=== PATIENT | female | born 1960 | race Caucasian/White ===

== ENCOUNTER → 2017-09-16 09:43 | Outpatient (CLI) | payer MEDICAID, SELFPAY | PROVIDERS: Family Provider Family Medicine; PCP Family Medicine; Visit Provider Ophthalmology | DX: H04.123 Dry eye syndrome of bilateral lacrimal glands (principal) | CPT/HCPCS: 36415 ==

== ENCOUNTER → 2018-02-14 09:25 | Outpatient (CLI) | payer MEDICAID, SELFPAY | PROVIDERS: Family Provider Family Medicine; PCP Family Medicine; Referring Provider Ophthalmology; Visit Provider Ophthalmology | DX: H04.123 Dry eye syndrome of bilateral lacrimal glands (principal) ==

== ENCOUNTER → 2018-07-15 08:23 | Outpatient (CLI) | payer MEDICAID, SELFPAY | PROVIDERS: Family Provider Family Medicine; PCP Family Medicine; Visit Provider Ophthalmology | DX: H04.123 Dry eye syndrome of bilateral lacrimal glands (principal) | CPT/HCPCS: 36415 ==

== ENCOUNTER → 2018-11-17 10:28 | Outpatient (CLI) | payer MEDICAID, SELFPAY | PROVIDERS: Family Provider Family Medicine; PCP Family Medicine; Referring Provider Ophthalmology; Visit Provider Ophthalmology | DX: H04.123 Dry eye syndrome of bilateral lacrimal glands (principal) | CPT/HCPCS: 36415 ==

== ENCOUNTER → 2019-04-14 11:16 | Outpatient (CLI) | payer MEDICAID, SELFPAY | PROVIDERS: Family Provider Family Medicine; PCP Family Medicine; Referring Provider Ophthalmology; Visit Provider Ophthalmology | DX: H04.123 Dry eye syndrome of bilateral lacrimal glands (principal) | CPT/HCPCS: 36415 ==

== ENCOUNTER → 2019-05-15 | Outpatient (CLI) | payer MEDICAID, SELFPAY ==
[2019-05-18 11:10] LABS: HPV Reflexed? NOT INDICATED
== END | disposition home or self-care (01) ==
PROVIDERS: PCP Family Medicine; Referring Provider Nurse Practitioner Adult Health; Visit Provider Nurse Practitioner Adult Health
DX: Z01.419 Encounter for gynecological examination (general) (routine) without abnormal findings (principal)
CPT/HCPCS: 88175; G0145

== ENCOUNTER → 2019-05-19 11:52 | Outpatient (CLI) | payer MEDICAID, SELFPAY ==
--- NOTE | 2019-05-19 11:55 | BI_ITS ---
MAMMOGRAPHY - BILATERAL SCREENING REASON FOR EXAM: Female, 59 years old. Routine annual screening examination. PERTINENT HISTORY: Non-contributory. TECHNIQUE: Digital bilateral breast jackie (3D mammographic acquisition) in the CC and MLO projections. 2-D mediolateral oblique (MLO) and craniocaudad (CC) views of both breasts were obtained. CAD: Full Field Digital Mammography with Computer Added Detection was performed. COMPARISON: Comparison is made with prior study dated May 12, 2017 and May 11, 2016. FINDINGS: Breast Composition: There are scattered areas of fibroglandular density. There are no dominant masses or suspicious calcifications. No other significant abnormalities are identified. There has been no significant change since the prior study. BI/SCREEN MAMM (CAD) W/JACKIE BILAT IMPRESSION: Stable bilateral screening mammogram. Yearly follow-up mammogram recommended. (A) ASSESSMENT CATEGORY: BIRADS Category 1: Negative. A letter regarding these results will be sent to the patient by the facility within 30 days. Approximately 10% of breast cancers are not detected by mammography. A normal mammogram should not delay biopsy of a clinically suspicious abnormality. [id number] Electronically Signed: Anshu Saldivar, at 13:11 EST , Service support ,
== END ==
PROVIDERS: PCP Family Medicine; Referring Provider Nurse Practitioner Adult Health; Visit Provider Nurse Practitioner Adult Health
DX: Z12.31 Encounter for screening mammogram for malignant neoplasm of breast (principal)
CPT/HCPCS: 77063; 77067

== ENCOUNTER → 2019-08-28 09:40 | Outpatient (CLI) | payer MEDICAID, SELFPAY | PROVIDERS: PCP Family Medicine; Referring Provider Ophthalmology; Visit Provider Ophthalmology | DX: M35.00 Sjogren syndrome, unspecified (principal) | CPT/HCPCS: 36415 ==

== ENCOUNTER → 2019-11-28 10:50 | Outpatient (CLI) | payer MEDICAID, SELFPAY ==
[2019-11-28 12:50] LABS: Anion Gap 5 (5-15); BUN 21 mg/dL (7-18); BUN/Creat Ratio 22.6 RATIO (10-20); Calcium,Total 9.7 mg/dL (8.5-10.1); Chloride 104 mmol/L (98-107); Creatinine, Serum 0.93 mg/dL (0.55-1.02); EST Glomerular Filtration Rate 66 mL/min (>60); Est Glom Filt Rate - Afr Amer 79 mL/min (>60); Glucose 98 mg/dL (74-106); Potassium 3.3 mmol/L (3.5-5.1); Sodium Level 140 mmol/L (136-145)
== END ==
PROVIDERS: PCP Family Medicine; Referring Provider Nurse Practitioner Adult Health; Visit Provider Nurse Practitioner Adult Health
DX: I10 Essential (primary) hypertension (principal)
CPT/HCPCS: 36415; 80048

== ENCOUNTER → 2020-01-22 08:28 | Outpatient (CLI) | payer MEDICAID, SELFPAY ==
[2020-01-22 09:55] LABS: Cholesterol 171 mg/dL (200); High Density Lipoprotein 55 mg/dL; Triglycerides 163 mg/dL; Very Low Density Lipoprotein 33 mg/dL (5-40)
== END ==
PROVIDERS: PCP Family Medicine; Referring Provider Ophthalmology; Visit Provider Ophthalmology
DX: Z13.220 Encounter for screening for lipoid disorders (principal)
CPT/HCPCS: 36415; 80061

== ENCOUNTER → 2020-06-05 11:41 | Outpatient (CLI) | payer MEDICAID, SELFPAY | PROVIDERS: PCP Family Medicine; Referring Provider Ophthalmology; Visit Provider Ophthalmology | DX: M35.00 Sjogren syndrome, unspecified (principal) | CPT/HCPCS: 36415 ==

== ENCOUNTER 2020-07-16 14:00 | Outpatient (RCR) | payer MEDICAID, SELFPAY | END 2020-07-17 23:59 | LOC: NS 14:00 | PROVIDERS: PCP Family Medicine; Visit Provider Family Medicine | DX: Z71.3 Dietary counseling and surveillance (principal); E66.9 Obesity, unspecified; Z68.31 Body mass index [BMI] 31.0-31.9, adult | CPT/HCPCS: 97802; 97803 ==

== ENCOUNTER 2020-07-30 10:22 | Outpatient (RCR) | payer MEDICAID, SELFPAY | END 2020-08-16 23:59 | LOC: NS 10:22 | PROVIDERS: PCP Family Medicine; Visit Provider Family Medicine | DX: Z71.3 Dietary counseling and surveillance (principal); E66.9 Obesity, unspecified; Z68.31 Body mass index [BMI] 31.0-31.9, adult | CPT/HCPCS: 97803 ==

== ENCOUNTER → 2020-09-03 10:13 | Outpatient (CLI) | payer MEDICAID, SELFPAY ==
[2020-09-03 12:49] LABS: Anion Gap 4 (5-15); BUN 13 mg/dL (7-18); BUN/Creat Ratio 16.1 RATIO (10-20); Calcium,Total 9.4 mg/dL (8.5-10.1); Chloride 105 mmol/L (98-107); Creatinine, Serum 0.81 mg/dL (0.55-1.02); EST Glomerular Filtration Rate 77 mL/min (>60); Est Glom Filt Rate - Afr Amer 93 mL/min (>60); Glucose 96 mg/dL (74-106); Potassium 3.8 mmol/L (3.5-5.1); Sodium Level 140 mmol/L (136-145)
== END ==
PROVIDERS: PCP Family Medicine; Referring Provider Family Medicine; Visit Provider Family Medicine
DX: I10 Essential (primary) hypertension (principal)
CPT/HCPCS: 36415; 80048

== ENCOUNTER 2020-09-10 10:00 | Outpatient (RCR) | payer MEDICAID, SELFPAY | END 2020-09-16 23:59 | LOC: NS 10:00 | PROVIDERS: PCP Family Medicine; Visit Provider Family Medicine | DX: Z71.3 Dietary counseling and surveillance (principal); E66.9 Obesity, unspecified; Z68.31 Body mass index [BMI] 31.0-31.9, adult | CPT/HCPCS: 97803 ==

== ENCOUNTER 2020-10-08 11:30 | Outpatient (RCR) | payer MEDICAID, SELFPAY | END 2020-10-16 23:59 | LOC: NS 11:30 | PROVIDERS: PCP Family Medicine; Visit Provider Family Medicine | DX: Z71.3 Dietary counseling and surveillance (principal); E66.9 Obesity, unspecified; Z68.31 Body mass index [BMI] 31.0-31.9, adult | CPT/HCPCS: 97803 ==

== ENCOUNTER → 2020-10-22 09:58 | Outpatient (CLI) | payer MEDICAID, SELFPAY | PROVIDERS: PCP Family Medicine; Referring Provider Ophthalmology; Visit Provider Ophthalmology | DX: M35.00 Sjogren syndrome, unspecified (principal); H04.123 Dry eye syndrome of bilateral lacrimal glands | CPT/HCPCS: 36415 ==

== ENCOUNTER 2020-11-05 11:00 | Outpatient (RCR) | payer MEDICAID, SELFPAY | END 2020-11-16 23:59 | LOC: NS 11:00 | PROVIDERS: PCP Family Medicine; Visit Provider Family Medicine | DX: E66.9 Obesity, unspecified (principal) | CPT/HCPCS: 97803 ==

== ENCOUNTER → 2020-11-14 11:07 | Outpatient (CLI) | payer MEDICAID, SELFPAY ==
[2020-11-14 12:15] LABS: Absolute Lymphocyte Count 1.94 X10^3/uL (0.83-4.51); Absolute Neutrophil Count 2.1 X10^3/uL (2.0-7.7); Basophil# 0.04 X10^3/uL; Basophil% 0.8 % (0-1); Eosinophil# 0.43 X10^3/uL; Eosinophils% 8.8 % (0-5); Hemoglobin 15.3 g/dL (12.0-15.0); Lymphocyte # 1.94 X10^3/ul (0.83-4.51); Lymphocyte % 39.8 % (19-41); Mean Corpuscular Hgb 32.7 pg (27.0-32.0); Mean Corpuscular Volume 96.2 fL (81-99); Monocyte# 0.39 X10^3/uL; NRBC Flagged by Analyzer 0 % (0-5); Neutrophil # 2.05 X10^3/uL (2.7-7.7); Neutrophil % 42.2 % (47-70); Platelet Count 186 K/mm3 (150-450); RBC Distribution Width CV 12.6 % (11.6-14.6); RBC Distribution Width SD 43.7 fl (35.1-43.9); Red Blood Count 4.68 M/mm3 (4.2-5.4); White Blood Count 4.9 K/mm3 (4.4-11.0)
[2020-11-14 12:44] LABS: ALB/GLOB Ratio 0.9 RATIO (0.9-2.4); AST(SGOT) 46 U/L (15-37); Alanine Aminotransfer ALT/SGPT 76 U/L (13-56); Albumin, Serum 3.7 g/dL (3.2-5.0); Alkaline Phosphatase 78 U/L (45-117); Anion Gap 6 (5-15); BUN 17 mg/dL (7-18); BUN/Creat Ratio 23.9 RATIO (10-20); Calcium,Total 9.1 mg/dL (8.5-10.1); Chloride 106 mmol/L (98-107); Creatinine, Serum 0.71 mg/dL (0.55-1.02); EST Glomerular Filtration Rate 89 mL/min (>60); Est Glom Filt Rate - Afr Amer 108 mL/min (>60); Globulin 3.9 g/dL (2.2-4.2); Glucose 95 mg/dL (74-106); Potassium 4.1 mmol/L (3.5-5.1); Protein, Total 7.6 g/dL (6.4-8.2); Sodium Level 139 mmol/L (136-145)
== END ==
PROVIDERS: PCP Family Medicine; Referring Provider Internal Medicine; Visit Provider Internal Medicine
DX: M25.50 Pain in unspecified joint (principal)
CPT/HCPCS: 36415; 80053; 85025; 94640

== ENCOUNTER 2020-12-09 09:00 | Outpatient (RCR) | payer MEDICAID, SELFPAY | END 2020-12-09 23:59 | disposition home or self-care (01) | LOC: NS 09:00 | PROVIDERS: PCP Family Medicine; Visit Provider Family Medicine | DX: Z71.3 Dietary counseling and surveillance (principal); E66.9 Obesity, unspecified; Z68.31 Body mass index [BMI] 31.0-31.9, adult | CPT/HCPCS: 97803 ==

== ENCOUNTER → 2021-01-15 15:17 | Outpatient (CLI) | payer MEDICAID, SELFPAY ==
[2021-01-15 16:52] LABS: AST(SGOT) 60 U/L (15-37); Alanine Aminotransfer ALT/SGPT 87 U/L (13-56); Albumin, Serum 3.7 g/dL (3.2-5.0); Alkaline Phosphatase 83 U/L (45-117); Anion Gap 6 (5-15); BUN 17 mg/dL (7-18); BUN/Creat Ratio 18.1 RATIO (10-20); Calcium,Total 8.7 mg/dL (8.5-10.1); Chloride 104 mmol/L (98-107); Creatinine, Serum 0.94 mg/dL (0.55-1.02); EST Glomerular Filtration Rate 64 mL/min (>60); Est Glom Filt Rate - Afr Amer 78 mL/min (>60); Globulin 3.7 g/dL (2.2-4.2); Glucose 126 mg/dL (74-106); Potassium 4.2 mmol/L (3.5-5.1); Protein, Total 7.4 g/dL (6.4-8.2); Sodium Level 140 mmol/L (136-145)
[2021-01-15 16:58] LABS: Vitamin D,25 Hydroxy 37.6 ng/mL
[2021-01-15 17:06] LABS: Absolute Lymphocyte Count 2.26 X10^3/uL (0.83-4.51); Absolute Neutrophil Count 2.2 X10^3/uL (2.0-7.7); Basophil# 0.03 X10^3/uL; Basophil% 0.6 % (0-1); Eosinophil# 0.29 X10^3/uL; Eosinophils% 5.7 % (0-5); Hematocrit 44.1 % (37-47); Lymphocyte # 2.26 X10^3/ul (0.83-4.51); Lymphocyte % 44.1 % (19-41); Mean Corpuscular Hgb 34.2 pg (27.0-32.0); Mean Corpuscular Volume 100.5 fL (81-99); Mean Platelet Vol. 13.8 fl (6.2-12.0); Monocyte# 0.39 X10^3/uL; Monocyte% 7.6 % (0-10); NRBC Flagged by Analyzer 0 % (0-5); Neutrophil # 2.15 X10^3/uL (2.7-7.7); Neutrophil % 41.8 % (47-70); Platelet Count 161 K/mm3 (150-450); RBC Distribution Width CV 12.8 % (11.6-14.6); RBC Distribution Width SD 47.7 fl (35.1-43.9); Red Blood Count 4.39 M/mm3 (4.2-5.4); White Blood Count 5.1 K/mm3 (4.4-11.0)
== END ==
PROVIDERS: PCP Family Medicine; Referring Provider Internal Medicine; Visit Provider Internal Medicine
DX: R79.89 Other specified abnormal findings of blood chemistry (principal)
CPT/HCPCS: 36415; 80053; 82306; 85025

== ENCOUNTER → 2021-03-19 08:14 | Outpatient (CLI) | payer MEDICAID, SELFPAY ==
[2021-03-19 10:20] LABS: Hepatitis B Surface Antibody Non-Reactive; Hepatitis B Surface Antigen Non-Reactive (Nonreactive); Hepatitis C Antibody Non-Reactive (Nonreactive)
[2021-03-20 15:32] LABS: Anti-Smooth Muscle ABS 11 Units (0-19); Hepatitis B Core Ab Total Negative (Negative)
== END ==
PROVIDERS: Referring Provider Ophthalmology; Visit Provider Ophthalmology
DX: R74.8 Abnormal levels of other serum enzymes (principal)
CPT/HCPCS: 36415; 83516; 86704; 86706; 86803; 87340

== ENCOUNTER → 2021-04-22 07:08 | Outpatient (CLI) | payer MEDICAID, SELFPAY ==
[2021-04-22 07:30] LABS: Absolute Lymphocyte Count 2.08 X10^3/uL (0.83-4.51); Absolute Neutrophil Count 2.6 X10^3/uL (2.0-7.7); Basophil# 0.04 X10^3/uL; Basophil% 0.7 % (0-1); Eosinophil# 0.36 X10^3/uL; Eosinophils% 6.5 % (0-5); Hematocrit 46.6 % (37-47); Lymphocyte # 2.08 X10^3/ul (0.83-4.51); Lymphocyte % 37.8 % (19-41); Mean Corp Hgb Conc 34.3 g/dL (32-36); Mean Corpuscular Hgb 34.4 pg (27.0-32.0); Mean Corpuscular Volume 100.2 fL (81-99); Mean Platelet Vol. 12.1 fl (6.2-12.0); Monocyte# 0.42 X10^3/uL; Monocyte% 7.6 % (0-10); NRBC Flagged by Analyzer 0 % (0-5); Neutrophil # 2.59 X10^3/uL (2.7-7.7); Neutrophil % 47.2 % (47-70); Platelet Count 183 K/mm3 (150-450); RBC Distribution Width CV 12.1 % (11.6-14.6); RBC Distribution Width SD 44.8 fl (35.1-43.9); Red Blood Count 4.65 M/mm3 (4.2-5.4); White Blood Count 5.5 K/mm3 (4.4-11.0)
[2021-04-22 08:00] LABS: ALB/GLOB Ratio 0.9 RATIO (0.9-2.4); AST(SGOT) 63 U/L (15-37); Alanine Aminotransfer ALT/SGPT 100 U/L (13-56); Albumin, Serum 3.7 g/dL (3.2-5.0); Alkaline Phosphatase 89 U/L (45-117); Anion Gap 7 (5-15); BUN 16 mg/dL (7-18); BUN/Creat Ratio 20.2 RATIO (10-20); Calcium,Total 9.3 mg/dL (8.5-10.1); Chloride 105 mmol/L (98-107); Creatinine, Serum 0.79 mg/dL (0.55-1.02); EST Glomerular Filtration Rate 78 mL/min (>60); Est Glom Filt Rate - Afr Amer 95 mL/min (>60); Globulin 3.9 g/dL (2.2-4.2); Glucose 137 mg/dL (74-106); Potassium 3.9 mmol/L (3.5-5.1); Protein, Total 7.6 g/dL (6.4-8.2); Sodium Level 140 mmol/L (136-145)
== END ==
DX: M19.90 Unspecified osteoarthritis, unspecified site (principal); M35.00 Sjogren syndrome, unspecified; R94.5 Abnormal results of liver function studies; Z79.899 Other long term (current) drug therapy
CPT/HCPCS: 36415; 80053; 85025

== ENCOUNTER → 2021-08-05 | Outpatient (CLI) | payer MEDICAID, SELFPAY | END | disposition home or self-care (01) | LOC: LAB 09:36 | PROVIDERS: PCP Family Medicine; Referring Provider Ophthalmology; Visit Provider Ophthalmology | DX: Z79.899 Other long term (current) drug therapy (principal) | CPT/HCPCS: 36415 ==

== ENCOUNTER → 2021-08-14 | Outpatient (CLI) | payer MEDICAID, SELFPAY ==
[2021-08-14 10:09] LABS: AST(SGOT) 53 U/L (15-37); Alanine Aminotransfer ALT/SGPT 78 U/L (13-56); Alkaline Phosphatase 79 U/L (45-117)
== END | disposition home or self-care (01) ==
PROVIDERS: PCP Family Medicine
DX: R74.8 Abnormal levels of other serum enzymes (principal)
CPT/HCPCS: 36415; 84075; 84450; 84460

== ENCOUNTER → 2021-09-11 09:32 | Outpatient (CLI) | payer MEDICAID, SELFPAY ==
[2021-09-11 11:46] LABS: AST(SGOT) 72 U/L (15-37); Alanine Aminotransfer ALT/SGPT 93 U/L (13-56); Alkaline Phosphatase 80 U/L (45-117)
== END ==
PROVIDERS: PCP Family Medicine
DX: K76.0 Fatty (change of) liver, not elsewhere classified (principal); R74.8 Abnormal levels of other serum enzymes
CPT/HCPCS: 36415; 84075; 84450; 84460

== ENCOUNTER → 2021-10-07 | Outpatient (CLI) | payer MEDICAID, SELFPAY ==
[2021-10-07 14:11] LABS: AST(SGOT) 83 U/L (15-37); Alanine Aminotransfer ALT/SGPT 101 U/L (13-56); CPK Total, Creatine Kinase 190 U/L (26-192)
[2021-10-09 18:37] LABS: Anti-Smooth Muscle ABS 10 Units (0-19)
== END | disposition home or self-care (01) ==
LOC: LAB 13:12
PROVIDERS: PCP Family Medicine; Referring Provider Internal Medicine; Visit Provider Internal Medicine
DX: R89.9 Unspecified abnormal finding in specimens from other organs, systems and tissues (principal); M35.00 Sjogren syndrome, unspecified
CPT/HCPCS: 36415; 82550; 83516; 84450; 84460

== ENCOUNTER → 2021-11-19 | Outpatient (CLI) | payer MEDICAID, SELFPAY ==
[2021-11-24 16:50] LABS: HPV Reflexed? NOT INDICATED
== END | disposition home or self-care (01) ==
LOC: LABSPEC 14:43
PROVIDERS: PCP Family Medicine; Referring Provider Family Medicine; Visit Provider Family Medicine
DX: Z12.4 Encounter for screening for malignant neoplasm of cervix (principal)
CPT/HCPCS: 88175; G0145

== ENCOUNTER → 2021-12-01 | Outpatient (CLI) | payer MEDICAID, SELFPAY ==
--- NOTE | 2021-12-01 15:40 | BI_ITS ---
MAMMOGRAPHY - BILATERAL SCREENING 3-D TOMOSYNTHESIS REASON FOR EXAM: Female, 61 years old. SCREENING PERTINENT HISTORY: No significant family history. TECHNIQUE: 2-D mammograms and 3-D Tomosynthesis of the breast (s) were performed. CAD was performed. COMPARISON: 05/19/2019 FINDINGS: The breast composition is composed of scattered fibroglandular density. Scattered benign calcifications are seen. No dense spiculated masses or suspicious microcalcifications are identified. No architectural distortion is identified. There is no skin thickening or retraction. There has been no significant change since the prior study. BI/SCRN MAMM (CAD)W/JACKIE BILAT IMPRESSION: No mammographic signs of malignancy. Routine yearly mammograms recommended. ASSESSMENT CATEGORY: BIRADS Category 1: Negative. A letter regarding these results will be sent to the patient by the facility within 30 days. FOLLOW UP RECOMMENDATION: Yearly follow up mammogram recommended. (A) Approximately 10% of breast cancers are not detected by mammography. A normal mammogram should not delay biopsy of a clinically suspicious abnormality. Electronically Signed: Amilcar Birmingham MD at 16:37 EDT ,
== END | disposition home or self-care (01) ==
LOC: OPBI 15:38
PROVIDERS: PCP Family Medicine; Visit Provider Family Medicine
DX: Z12.31 Encounter for screening mammogram for malignant neoplasm of breast (principal)
CPT/HCPCS: 77063; 77067

== ENCOUNTER → 2021-12-16 | Outpatient (CLI) | payer MEDICAID, SELFPAY | END | disposition home or self-care (01) | PROVIDERS: PCP Family Medicine; Referring Provider Ophthalmology; Visit Provider Ophthalmology | DX: M35.00 Sjogren syndrome, unspecified (principal); H04.123 Dry eye syndrome of bilateral lacrimal glands | CPT/HCPCS: 36415 ==

== ENCOUNTER → 2022-05-11 | Outpatient (CLI) | payer MEDICAID, SELFPAY | END | disposition home or self-care (01) | PROVIDERS: PCP Family Medicine; Visit Provider Ophthalmology | DX: Z79.899 Other long term (current) drug therapy (principal) | CPT/HCPCS: 36415 ==

== ENCOUNTER → 2022-08-11 | Outpatient (CLI) | payer MEDICAID, SELFPAY | END | disposition home or self-care (01) | LOC: LAB 10:47 | PROVIDERS: PCP Family Medicine; Referring Provider Ophthalmology; Visit Provider Ophthalmology | DX: Z79.899 Other long term (current) drug therapy (principal) | CPT/HCPCS: 36415 ==

== ENCOUNTER 2022-10-08 11:16 | Emergency (ER) | payer MEDICAID, SELFPAY ==
[2022-10-08 11:18] VITALS: BP 130/102; PULSE 86; RESP 18; TEMP 36.3; O2SAT 97; BMI 32.0
--- NOTE | 2022-10-08 11:30 | ED.RN ---
no old ekgs listed
--- NOTE | 2022-10-08 11:37 | EX.ED.DYSGE1 ---
HPI History of Present Illness Chief Complaint: Palpitations Detail of Chief Complaint: Bulbous sensation throat and chest Informant: patient Onset/Context/Timing Onset: Weeks (Approxi-1 week ago) Context: - (Unknown certain) Timing: Continuous (Uncertain) Quality: Rapid heart rate and bubble sensation Location: Initially anterior neck now mid chest Current Severity: Mild Maximum Severity: Mild Worsened by: Upright position Relieved by: Nothing Associated Symptoms Associated Symptoms: Nothing Narrative Narrative: Patient is a 62-year-old woman with history of glaucoma who had surgery August [address] Gayle at the [facility] [place], GERD, diabetes who presents because of a full sensation initially experienced in the throat and now in the mid chest. She informed that she has a history of Sjogren's. She denies heartburn, indigestion or sour taste. She denies radiation of the discomfort to her shoulders or arms or back. She denies nausea, vomiting or diaphoresis. She denies shortness of breath. She denies exertional symptoms or fatigue. She states she does not do things quickly because of the Sjogren's. She denies history of peptic ulcer disease and specifically black or maroon-colored stool. She denies heat or cold intolerance. She denies change in weight. She is present taking methotrexate. Prior similar symptoms: No Recent Illness/Hospitalization: Yes PFSH PFSH Allergy/AdvReac Type Severity Reaction Status Date / Time amoxicillin Allergy Nausea/Vom/ Verified 10/08/22 11:20 Diarrhea metformin Allergy Nausea/Vom/ Verified 10/08/22 11:20 Diarrhea Family History no significant family his no significant family history (No significant cardiovascular disease per sister) Social History (Updated 10/08/22 @ 11:[address] Mario Castro MD) household members: none Smoking Status: Never smoker alcohol intake: never substance use type: does not use ROS ROS ED Constitutional Constitutional ED: Denies chills, fever(s), subjective, sweats or weight loss Eyes Eyes: Reports other Details: Dry eyes ; Denies blurry vision, change in vision or diplopia ENT ENT ED: Denies ear pain, rhinorrhea or sore throat Cardiovascular Cardiovascular: Reports racing heartbeat; Denies chest pain, orthopnea, palpitations or paroxysmal nocturnal dyspnea Respiratory/Chest Respiratory/Chest: Denies cough, dyspnea, dyspnea on exertion, orthopnea or paroxysmal nocturnal dyspnea Gastrointestinal Gastrointestinal: Denies abdominal pain, nausea or vomiting Genitourinary Genitourinary ED: Denies dysuria, hematuria or urinary frequency Musculoskeletal Musculoskeletal: Denies arthralgias or myalgias Integumentary Denies rash Neurologic Neurologic: Denies headache(s), paresthesias or weakness Endocrine Endocrinology: Denies cold intolerance or heat intolerance Hematologic/Lymphatic Hematologic/Lymphatic: Reports systems reviewed and no addt'l complaints, except as documented EXAM Physical Exam Const Vital Signs: 10/08/22 11:18 10/08/22 11:48 10/08/22 11:53 Temperature 97.4 F L Temperature Source Temporal Pulse Rate 86 Respiratory Rate 18 101 H Respiratory Effort Normal Respiratory Pattern Normal Blood Pressure 130/102 H Blood Pressure Mean 111 Pulse Ox 97 Oxygen Delivery Method Room Air 10/08/22 11:58 10/08/22 12:24 Temperature Temperature Source Pulse Rate 97 95 Respiratory Rate 16 16 Respiratory Effort Respiratory Pattern Blood Pressure 133/89 H Blood Pressure Mean 103 Pulse Ox 98 Oxygen Delivery Method Room Air Positive well nourished, well developed and obese General Appearance ED: well developed and NAD; Negative for cyanotic, diaphoretic or pallor Nutritional Appearance: obese HEENT Reports dry mucous membranes HEENT Narrative: Ears normal. Nares patent. Posterior pharynx is normal. Mouth ED: Yes dry mucous membranes Mouth: dry mucous membranes Eyes PERRL and EOMs intact bilaterally General Eye ED: Negative for pale conjunctiva or scleral icterus Neck no lymphadenopathy, supple and no JVD Chest Wall inspection of chest normal and palpation of chest normal Resp normal respiratory effort and clear to auscultation bilaterally Cardio no murmurs Rate: tachycardic Rhythm: abnormal rhythm irregularly irregular GI normal to inspection, nondistended, normoactive bowel sounds, non-tender, non-distended and no masses; Negative for hepatosplenomegaly Back/Spine no CVA tenderness Extremity normal to inspection General Extremety ED: Negative for edema or tenderness General Extremity: Negative for edema Neuro oriented x3, CN's II-XII intact bilaterally and no sensory deficits noted Sensorium / Orientation: alert Psych mental status grossly normal Skin no rashes or lesions noted, no wounds and skin turgor normal General Skin Exam: Negative for jaundice or pallor MDM MDM MDM Narrative Medical decision making narrative: Patient's monitor reveals atrial fibrillation with rapid ventricular sponsor rate of 1 60-1 70. Need to evaluate for thyroid disease, coronary disease, valvular heart disease. There is no history of VTE and she has no risk factors. Patient's CHADS2 BASC score is 2. She is a candidate for antithrombotic versus anticoagulant. We will speak with Dr. Gayle regarding risk of bleeding since she recently had surgery for glaucoma. Work-up included EKG, chest x-ray because of rales at the left base, CBC to assess H&H and platelet count, BMP to assess electrolyte panel and glucose and troponin. TSH was also obtained to evaluate for thyroid disease. Patient will receive 25 mg of Cardizem for rate control since onset is unknown. Nurse informing that patient's heart rate is in the 90s. She did not receive the Cardizem. Monitor now reveals a sinus rhythm rate of 92. Complexes are narrow. There is no ectopy noted. Dr. Gayle was informed the patient's history physical and specifically asked regarding antithrombotic therapy i.e. aspirin versus anticoagulant therapy. She said there is no contraindication for either. Case will be discussed with hvac mechanic on-call regarding antiplatelet versus anticoagulant therapy and follow-up. Case was discussed with hvac mechanic, Dr. Jerson Ruano. Patient was placed on aspirin. He is to contact office for outpatient work-up Lab Data Attestation: I reviewed the patient's lab results. Lab results narrative: CBC reveals elevated H&H of 16.5 and 48.9. Platelet count is normal. CBC is otherwise unremarkable. TSH is normal. Troponin is normal. Glucose is slight elevated 119 with a normal CO2 anion gap. Labs: Laboratory Results - last 24 hr 10/08/22 10/08/22 11:37 11:37 WBC 5.9 RBC 5.10 Hgb 16.5 H Hct 48.9 H MCV 95.9 MCH 32.4 H MCHC 33.7 RDW Std Deviation 48.7 H RDW Coeff of Shea 13.7 Plt Count 173 MPV 13.5 H Immature Gran % (Auto) 0.200 Neut % (Auto) 48.8 Lymph % (Auto) 39.0 [place] % (Auto) 8.3 Eos % (Auto) 3.2 Baso % (Auto) 0.5 Absolute Neuts (auto) 2.9 Absolute Lymphs (auto) 2.31 Nucleated RBC % 0 Sodium 141 Potassium 4.2 Chloride 109 H Carbon Dioxide 24.0 Anion Gap 8 BUN 18 Creatinine 0.82 Estim Creat Clear Calc 58.84 Est GFR (MDRD) Af Amer 91 Est GFR (MDRD) Non-Af 75 BUN/Creatinine Ratio 22.0 H Glucose 119 H Calcium 9.6 Troponin I High Sens 6 TSH 2.63 Radiography Chest X-Ray - ED: 1 View and Read by ED Physician (Single view portable chest x-rays independent reviewed interpreted by me at 1158 as no acute process. Cardiac silhouette and size unremarkable. Perihilar region unremarkable. Lung parenchyma is unremarkable. Osseous structures are unremarkable. The chest x-ray is normal.) Diagnostic Testing: Clinical Impression(s) from Imaging Studies Chest X-Ray 10/08/22 11:53 IMPRESSION: Mild atelectasis in the left lung base. Electronically Signed: Merry Hicks MD at 12:25 EDT Reading Location ID and State: [facility] / [place] Tel , Service support , Rhythm Strip Rhythm Strip: A-fib Rate: 172 Ectopy: None EKG Initial EKG: Attestation: I personally reviewed and interpreted this EKG as follows: Interpretation: Atrial Fibrillation (Rate is 170. QRS duration 74 ms. QT duration 280 ms. Aroda is normal. There are ST-T wave changes most likely due to rate. The EKG is not normal. There are no prior EKGs for comparison.) Management Discussion w/another healthcare provider: [facility] [employer]r And Trimmer (Documented in the MDM portion of the chart) Discharge Plan Triage Chief Complaint: Palpitations Other Complaint: Chest Pain ED Provider: Mario Castro Dx/Rx/DC Orders Clinical Impression: Paroxysmal atrial fibrillation with rapid ventricular response, Sjogren's disease Instructions: ED AFIB Primary Care Provider: Pallavi Ng Referrals: Ashleigh Low MD [Med Staff - Active Staff] - 5-7 Days Pallavi Ng DO [Primary Care Provider] - Activity Restrictions/Additional Instructions: 1. Take an aspirin a day 2. Call Dr. Low's office today for appointment to be seen in the next 5 to 7 days. Let the staff know you are seen in the emergency department and this is an ER follow-up Disposition Disposition: Home, Self Care
[2022-10-08 11:48] VITALS: RESP 101
[2022-10-08 11:50] LABS: Absolute Lymphocyte Count 2.31 X10^3/uL (0.83-4.51); Absolute Neutrophil Count 2.9 X10^3/uL (2.0-7.7); Basophil# 0.03 X10^3/uL; Basophil% 0.5 % (0-1); Eosinophil# 0.19 X10^3/uL; Eosinophils% 3.2 % (0-5); Hematocrit 48.9 % (37-47); Hemoglobin 16.5 g/dL (12.0-15.0); Lymphocyte # 2.31 X10^3/ul (0.83-4.51); Mean Corp Hgb Conc 33.7 g/dL (32-36); Mean Corpuscular Hgb 32.4 pg (27.0-32.0); Mean Corpuscular Volume 95.9 fL (81-99); Mean Platelet Vol. 13.5 fl (6.2-12.0); Monocyte# 0.49 X10^3/uL; Monocyte% 8.3 % (0-10); NRBC Flagged by Analyzer 0 % (0-5); Neutrophil # 2.89 X10^3/uL (2.7-7.7); Neutrophil % 48.8 % (47-70); Platelet Count 173 K/mm3 (150-450); RBC Distribution Width CV 13.7 % (11.6-14.6); RBC Distribution Width SD 48.7 fl (35.1-43.9); White Blood Count 5.9 K/mm3 (4.4-11.0)
--- NOTE | 2022-10-08 11:53 | RAD_ITS ---
HISTORY: Palpitations, rales left base. TECHNIQUE: XR Chest 1 View. COMPARISON: 01/11/2017. FINDINGS: CARDIOMEDIASTINAL BORDERS: Cardiac silhouette within normal limits in size. Mild calcification and tortuosity of the aorta. LUNGS: Mild linear opacities at the left lung base. PLEURA: No pleural effusion or pneumothorax seen. OSSEOUS STRUCTURES: Left shoulder calcific tendinitis. RAD/Chest 1 View (Portable) IMPRESSION: Mild atelectasis in the left lung base. Electronically Signed: Merry Hicks MD at 12:25 EDT ,
--- NOTE | 2022-10-08 11:57 | ED.RN ---
Patient converted to NSR. EMD aware.
[2022-10-08 11:58] VITALS: PULSE 97; RESP 16
[2022-10-08 12:18] LABS: Anion Gap 8 (5-15); BUN 18 mg/dL (7-18); Calcium,Total 9.6 mg/dL (8.5-10.1); Chloride 109 mmol/L (98-107); Creatinine, Serum 0.82 mg/dL (0.55-1.02); EST Glomerular Filtration Rate 75 mL/min (>60); Est Glom Filt Rate - Afr Amer 91 mL/min (>60); Estimated Creatinine Clearance 58.84 ml/min; Glucose 119 mg/dL (74-106); Potassium 4.2 mmol/L (3.5-5.1); Sodium Level 141 mmol/L (136-145); Thyroid Stim Hormone (TSH) 2.63 uIU/mL (0.358-3.74); Troponin-I HS 6 pg/mL (3.0-54.0)
[2022-10-08 12:24] VITALS: BP 133/89; PULSE 95; RESP 16; O2SAT 98
[2022-10-08 13:48] VITALS: BP 129/86
== END 2022-10-08 13:49 | disposition home or self-care (01) ==
PROVIDERS: Emergency Provider Emergency Medicine; PCP Family Medicine; Visit Provider Emergency Medicine
DX: I48.0 Paroxysmal atrial fibrillation (principal); M35.00 Sjogren syndrome, unspecified; E66.9 Obesity, unspecified; Z68.32 Body mass index [BMI] 32.0-32.9, adult
CPT/HCPCS: 71045; 80048; 84443; 84484; 85025; 93005; 99285; J7030

== ENCOUNTER 2022-10-09 22:52 | Observation (INO) | payer MEDICAID, SELFPAY ==
[2022-10-09 22:52] VITALS: BP 125/107; PULSE 85; RESP 14; TEMP 36.2; O2SAT 98; BMI 32.5
[2022-10-09 23:32] VITALS: O2SAT 100
--- NOTE | 2022-10-09 23:34 | ED.VIS.CHEST ---
HPI History of Present Illness Chief Complaint: Chest Pain Informant: patient Onset/Context/Timing Onset: Today Activity at onset: gradual Timing: Intermittent Quality: Positive for Aching and Pressure Location: Left Chest Current Severity: Mild Maximum Severity: Mild Worsened By: Nothing Relieved By: Nothing Associated Symptoms: Negative for Nausea, Vomiting, Diaphoresis, Dyspnea, Cough, Fever, Lightheadedness, Acid Reflux or Palpitations Narrative Narrative: 62-year-old female diagnosed with new onset A-fib yesterday. Also has Sjogren's, reflux and borderline diabetes. Yesterday she is in the emergency department diagnosed with new onset A-fib. Was discharged home. Outpatient follow-up. Today she has developed intermittent left parasternal chest discomfort. She describes it as a pressure aching. No radiation to her left arm or back. No dyspnea, nausea or diaphoresis. Not specifically associated with exertion. She is never had a significant cardiac work-up in the past. She has never had a heart cath or stress test that she can remember. She is never had a DVT or PE or recent risk factors. No leg pain or swelling. No pleuritic pain. No hemoptysis. Prior Similar Symptoms: No Recent Illness/Hospitalization: No CVD Risk Factors: Positive for Diabetes PE Risk Factors: Negative for Recent Travel/Surgery, Recent Immobilization, Prior DVT or PE, Cancer or OCP + Smoking + >/=35 TAD Risk Factors: Negative for Marfan's Syndrome PFSH PFS Home Medications aspirin 81 mg tablet 81 mg PO DAILY 10/09/22 [History Last Taken Unknown] cyanocobalamin (vitamin B-12) 1,000 mcg tablet (Vitamin B-12) 1,000 mcg PO DAILY 10/09/22 [History Last Taken Unknown] folic acid 1 mg tablet 1 mg PO DAILY 10/09/22 [History Last Taken Unknown] lisinopril 10 mg tablet 10 mg PO DAILY 10/09/22 [History Last Taken Unknown] methotrexate sodium 2.5 mg tablet 2.5 mg PO TU 10/09/22 [History Last Taken Unknown] minocycline 50 mg capsule 50 mg PO DAILY 10/09/22 [History Last Taken Unknown] Allergy/AdvReac Type Severity Reaction Status Date / Time amoxicillin Allergy Nausea/Vom/ Verified 10/08/22 11:20 Diarrhea metformin Allergy Nausea/Vom/ Verified 10/08/22 11:20 Diarrhea Social History household members: none Smoking Status: Never smoker alcohol intake: never substance use type: does not use ROS ROS ED ROS Narrative Chest discomfort. Review of Systems ROS Unobtainable: Denies due to encephalopathy Constitutional Constitutional ED: Denies chills or fever(s) Eyes Eyes: Reports none ENT ENT ED: Denies ear pain Cardiovascular Cardiovascular: Reports as per HPI and chest pain; Denies palpitations or racing heartbeat Respiratory/Chest Respiratory/Chest: Denies cough or dyspnea Gastrointestinal Gastrointestinal: Denies abdominal pain Genitourinary Genitourinary ED: Denies dysuria Musculoskeletal Musculoskeletal: Denies arthralgias Integumentary Denies abscess Neurologic Neurologic: Denies headache(s) Psychiatric Psychiatric: Denies anxiety Endocrine Endocrinology: Denies cold intolerance Hematologic/Lymphatic Hematologic/Lymphatic: Denies easy bleeding or easy bruising Allergic/Immunologic Allergic/Immunologic ED: Denies mouth swelling or tongue swelling EXAM Physical Exam Narrative Exam Narrative: 60-year-old female no acute distress. Vital signs stable afebrile. Pulse ox 98% on room air no signs of hypoxia. HEENT exam unremarkable. Neck nontender no JVD. Lungs clear to auscultation bilaterally. Heart regular rate and rhythm rate about 80 no murmur. Chest wall nontender. No ecchymosis or bruising. No redness. No palpable discomfort on the chest wall. Abdomen soft nontender. Moving all 4 extremities. Calves are nontender without edema or cords. Radial pulses are equal symmetrical. Neurologically she is awake alert with no focal motor deficits. Const Vital Signs: 10/09/22 22:52 10/09/22 22:58 10/09/22 23:32 Temperature 97.2 F L Temperature Source Temporal Pulse Rate 85 Respiratory Rate 14 Respiratory Effort Normal Non-Labored Blood Pressure 125/107 H Blood Pressure Mean 113 Pulse Ox 98 100 Oxygen Delivery Method Room Air Room Air Positive well nourished and well developed; Negative for cachectic, contractures or unkempt General Appearance ED: well developed and NAD; Negative for unkempt, cachectic or contractures Nutritional Appearance: Negative for cachectic HEENT Reports moist mucous membranes normocephalic and atraumatic; Negative for trauma or tenderness Eyes PERRL and EOMs intact bilaterally General Eye ED: Negative for pale conjunctiva, scleral icterus or other Neck no lymphadenopathy, supple and no JVD General: Negative for tenderness Chest Wall inspection of chest normal and palpation of chest normal Chest: Negative for tenderness Resp normal respiratory effort and clear to auscultation bilaterally Effort and Inspection: Negative for respiratory distress Auscultation: Negative for rales, rhonchi or wheezes Cardio regular rate, regular rhythm, S1 normal heart sound, S2 normal heart sound and no murmurs Rate: Negative for bradycardia Rhythm: Negative for abnormal rhythm Peripheral Pulses: pulses 2+ throughout GI normal to inspection, nondistended, normoactive bowel sounds, soft to palpation, non-tender, non-distended and no masses Auscultation: Negative for hyperactive bowel sounds Palpation: Negative for splenomegaly or mass Back/Spine no CVA tenderness and no thoracic nor lumbar tenderness General Back: Negative for CVA tenderness Cervical Spine: Negative for cervical spine tenderness Extremity normal to inspection General Extremety ED: Negative for edema or pulses abnormal General Extremity: Negative for edema or pulses abnormal Neuro oriented x3 and CN's II-XII intact bilaterally Sensorium / Orientation: awake, alert, oriented to person, oriented to place and oriented to time; Negative for confused, lethargic, stuporous or other Motor Exam: strength 5/5 throughout Psych mental status grossly normal Appearance: Negative for unkempt Attitude: No agitated Mood & Affect: Negative for depressed, anxious or tearful Skin no rashes or lesions noted and no wounds General Skin Exam: Negative for jaundice Rashes: No rashes noted Trauma: Negative for abrasion or laceration Heart Score History: Moderately Suspicious ECG: Normal Age: >45 - <65 years Risk Factors: 1 or 2 Risk Factors Troponin: </= Normal Limit Score: 3 MDM MDM MDM Narrative Medical decision making narrative: 62-year-old female with new onset A-fib diagnosed yesterday. Today with chest discomfort is not reproducible. Undergo cardiac work-up. Repeat exam a.m. at 1:07 AM patient doing well. Currently symptom-free. She has had more intermittent chest pain during her ER evaluation. We went over her test results. I discussed with both her and her son at bedside. She has atypical nonreproducible chest pain it really does not sound like reflux either. She is going to eventually need a stress test. She prefers to have an answer to make sure this is not cardiac. I will speak to the hospitalist about admission. History & Record Review Discussion w/independent historian: Patient and Family Lab Data Attestation: I reviewed the patient's lab results. Lab results narrative: CBC unremarkable. White count of 6.6. H&H of 15 and 45. Platelets 169. Electrolytes unremarkable. Gap of 5. Normal BUN and creatinine. Glucose 104. Initial troponin 4. Chest x-ray chronic changes no acute process. Labs: Laboratory Results - last 24 hr 10/09/22 10/09/22 23:05 23:05 WBC 6.6 RBC 4.73 Hgb 15.4 H Hct 45.1 MCV 95.3 MCH 32.6 H MCHC 34.1 RDW Std Deviation 47.9 H RDW Coeff of Shea 13.6 Plt Count 169 MPV 13.7 H Immature Gran % (Auto) 0.200 Neut % (Auto) 38.4 L Lymph % (Auto) 47.8 H [place] % (Auto) 8.6 Eos % (Auto) 4.4 Baso % (Auto) 0.6 Absolute Neuts (auto) 2.6 Absolute Lymphs (auto) 3.17 Nucleated RBC % 0 Sodium 140 Potassium 4.0 Chloride 107 Carbon Dioxide 28.0 Anion Gap 5 BUN 15 Creatinine 0.81 Estim Creat Clear Calc 59.57 Est GFR (MDRD) Af Amer 93 Est GFR (MDRD) Non-Af 76 BUN/Creatinine Ratio 18.6 Glucose 104 Calcium 9.7 Troponin I High Sens 4 Radiography Chest X-Ray - ED: 1 View, Read by ED Physician, Read by Radiologist, Heart, Lungs, Mediastinum, Bony Structures and Chronic Changes Diagnostic Testing: Clinical Impression(s) from Imaging Studies Chest X-Ray 10/09/22 23:35 IMPRESSION: No evidence of active intrathoracic disease. Electronically Signed: Ngoc Baca MD at 23:49 EDT , Chest x-ray, portable, single view interpreted both by myself and the radiologist shows no acute abnormality. Normal cardiac silhouette. Normal mediastinum. Rhythm Strip Rhythm Strip: Sinus Rhythm Rate: 86 Ectopy: PAC(s) EKG Initial EKG: Attestation: I personally reviewed and interpreted this EKG as follows: Interpretation: Sinus Rhythm and No Acute Injury Pattern Comments: Normal sinus rhythm rate 86 with PACs. No acute signs of [place] or ischemia. No A-fib. Discharge Plan Triage Chief Complaint: Chest Pain ED Provider: Everton Delgado Dx/Rx/DC Orders Clinical Impression: Chest pain, History of atrial fibrillation, History of diabetes mellitus Prescriptions: No Action cyanocobalamin (vitamin B-12) [Vitamin B-12] 1,000 mcg tablet 1,000 mcg PO DAILY Label Comments: TAKE 1 TABLET BY MOUTH EVERY DAY methotrexate sodium 2.5 mg tablet 2.5 mg PO TU Label Comments: TAKE 5 TABLETS BY MOUTH ONE TIME A WEEK. lisinopril 10 mg tablet 10 mg PO DAILY Label Comments: TAKE 1 TABLET BY MOUTH EVERY DAY minocycline 50 mg capsule 50 mg PO DAILY Label Comments: TAKE 1 CAPSULE BY MOUTH EVERY DAY folic acid 1 mg tablet 1 mg PO DAILY Label Comments: TAKE 1 TABLET BY MOUTH EVERY DAY aspirin 81 mg Tablet 81 mg PO DAILY Primary Care Provider: Pallavi Ng Referrals: Pallavi Ng, DO [Primary Care Provider] - Disposition Disposition: Acute Care Hospital [facility]
--- NOTE | 2022-10-09 23:35 | RAD_ITS ---
INDICATION: chest pain EXAMINATION/TECHNIQUE: X-RAY - XR Chest 1 View AP portable. 11:35 PM COMPARISON: 10/08/2022 FINDINGS: LINES/DEVICES: None. LUNGS: No consolidation. No pneumothorax. MEDIASTINUM: Aorta is tortuous and atherosclerotic. CARDIAC SILHOUETTE: Not enlarged. BONES AND SOFT TISSUES: No acute abnormalities. RAD/Chest 1 View (Portable) IMPRESSION: No evidence of active intrathoracic disease. Electronically Signed: Ngoc Baca MD at 23:49 EDT ,
[2022-10-09 23:39] LABS: Absolute Lymphocyte Count 3.17 X10^3/uL (0.83-4.51); Absolute Neutrophil Count 2.6 X10^3/uL (2.0-7.7); Basophil# 0.04 X10^3/uL; Basophil% 0.6 % (0-1); Eosinophil# 0.29 X10^3/uL; Eosinophils% 4.4 % (0-5); Hematocrit 45.1 % (37-47); Hemoglobin 15.4 g/dL (12.0-15.0); Lymphocyte # 3.17 X10^3/ul (0.83-4.51); Lymphocyte % 47.8 % (19-41); Mean Corp Hgb Conc 34.1 g/dL (32-36); Mean Corpuscular Hgb 32.6 pg (27.0-32.0); Mean Corpuscular Volume 95.3 fL (81-99); Mean Platelet Vol. 13.7 fl (6.2-12.0); Monocyte# 0.57 X10^3/uL; Monocyte% 8.6 % (0-10); NRBC Flagged by Analyzer 0 % (0-5); Neutrophil # 2.55 X10^3/uL (2.7-7.7); Neutrophil % 38.4 % (47-70); Platelet Count 169 K/mm3 (150-450); RBC Distribution Width CV 13.6 % (11.6-14.6); RBC Distribution Width SD 47.9 fl (35.1-43.9); Red Blood Count 4.73 M/mm3 (4.2-5.4); White Blood Count 6.6 K/mm3 (4.4-11.0)
[2022-10-09] MEDS: Aspirin 81 MG TAB.CHEW 324 MG PO (23:46)
[2022-10-09 23:52] VITALS: PULSE 69; RESP 14; O2SAT 99
[2022-10-09 23:56] LABS: Anion Gap 5 (5-15); BUN 15 mg/dL (7-18); BUN/Creat Ratio 18.6 RATIO (10-20); Calcium,Total 9.7 mg/dL (8.5-10.1); Chloride 107 mmol/L (98-107); Creatinine, Serum 0.81 mg/dL (0.55-1.02); EST Glomerular Filtration Rate 76 mL/min (>60); Est Glom Filt Rate - Afr Amer 93 mL/min (>60); Estimated Creatinine Clearance 59.57 ml/min; Glucose 104 mg/dL (74-106); Sodium Level 140 mmol/L (136-145); Troponin-I HS 4 pg/mL (3.0-54.0)
[2022-10-10] VITALS (8 sets, daily range): BP systolic 116–129; BP diastolic 78–85; PULSE 68–74; RESP 12–16; TEMP 36.5–36.7; O2SAT 92–100; BMI 31.9
[2022-10-10 02:23] LABS: Troponin-I HS 6 pg/mL (3.0-54.0)
--- NOTE | 2022-10-10 02:46 | HP.PCM.HOS_ITS ---
HPI - General General Date of Admission: 10/10/22 Date of Service: 10/10/22 Chief Complaint: Chest pain HPI Narrative SON BUSCH, is a 62 F with a significant history of glaucoma; Sjogren disease; hematochromatosis; diabetes mellitus and GERD who presents to the emergency department with chest pain that started several hours before pre sentation. The chest pain is located at the left chest and is nonradiating. Intensity of the chest pain is 8-9. She described the chest pain as sharp. Moving makes the person worse and rest makes it better. She denies any associated symptoms of nausea, vomiting, diaphoresis or shortness of breath. A day before presentation patient came to emergency department with symptoms of A-fib and she was found to be in A-fib with RVR for the first time. Patient was discharged home on daily aspirin and to follow-up with cardiology. [facility] Medical History (Updated 10/10/22 @ 05:[address] Calin Buchanan MD) GERD (gastroesophageal reflux disease) Glaucoma Hemochromatosis History of diabetes mellitus Hx of gastroesophageal reflux (GERD) Sjogren's disease Home Medications aspirin 81 mg tablet 81 mg PO DAILY 10/09/22 [History Last Taken Unknown] cyanocobalamin (vitamin B-12) 1,000 mcg tablet (Vitamin B-12) 1,000 mcg PO DAILY 10/09/22 [History Last Taken Unknown] folic acid 1 mg tablet 1 mg PO DAILY 10/09/22 [History Last Taken Unknown] lisinopril 10 mg tablet 10 mg PO DAILY 10/09/22 [History Last Taken Unknown] methotrexate sodium 2.5 mg tablet 2.5 mg PO TU 10/09/22 [History Last Taken Un known] minocycline 50 mg capsule 50 mg PO DAILY 10/09/22 [History Last Taken Unknown] Allergy/AdvReac Type Severity Reaction Status Date / Time amoxicillin Allergy Nausea/Vom/ Verified 10/08/22 11:20 Diarrhea metformin Allergy Nausea/Vom/ Verified 10/08/22 11:20 Diarrhea Family History (Updated 10/10/22 @ 04:[address] Calin Buchanan MD) Other Diabetes Surgical History (Updated 10/10/22 @ 05:[address] Calin Buchanan MD) Hx of knee surgery Social History household members: none Smoking Status: Never smoker alcohol intake: never substance use type: does not use ROS ROS Narrative Pertinent positives and pertinent negatives as noted in HPI. All other systems were reviewed and are negative Vital Signs Vital Signs Vital Signs: 10/09/22 22:52 10/09/22 22:58 10/09/22 23:32 Temperature 97.2 F L Temperature Source Temporal Pulse Rate 85 Respiratory Rate 14 Respiratory Effort Normal Non-Labored Blood Pressure 125/107 H Blood Pressure Mean 113 Pulse Ox 98 100 Oxygen Delivery Method Room Air Room Air 10/09/22 23:52 10/10/22 00:52 10/10/22 01:18 Temperature 98.1 F Temperature Source Temporal Pulse Rate 69 69 68 Respiratory Rate 14 15 15 Respiratory Effort Blood Pressure 129/79 H Blood Pressure Mean 95 Pulse Ox 99 99 100 Oxygen Delivery Method Room Air Room Air 10/10/22 01:00 10/10/22 02:00 Temperature Temperature Source Pulse Rate 68 69 Respiratory Rate 15 15 Respiratory Effort Blood Pressure Blood Pressure Mean Pulse Ox 99 100 Oxygen Delivery Method Room Air Room Air Weight Weight: 83.461 kg Body Mass Index (BMI) 32.5 Physical Exam Narrative Physical exam: General: Well-nourished, well-developed. Head: Normocephalic, atraumatic, no tenderness Eyes: Vision is grossly intact. EOMI ENT, no trauma, moist mucous membranes, no rhinorrhea Neck: Nontender, No thyromegaly. CVS: Regular rate and rhythm. S1-S2 present. No murmur, gallop or rub. Respiratory : clear to auscultation bilaterally, chest wall nontender Abdomen: Soft, nontender, nondistended, normal bowel sounds, no masses : Deferred Back: Nontender, no CVA tenderness, no midline spinal tenderness, deformities, step-offs Extremities: Nontender full range of motion, no trauma Skin: Normal color, no trauma, abrasions Neuro: Alert, oriented, cranial nerves II through XII grossly intact. Psychiatry: Normal mood. Normal affect. Not depressed. Not anxious. Results Lab / Micro Data Result Diagrams: 10/09/22 23:05 10/09/22 23:05 Labs: Laboratory Results - last 24 hr 10/09/22 23:05: WBC 6.6, RBC 4.73, Hgb 15.4 H, Hct 45.1, MCV 95.3, MCH 32.6 H, MCHC 34.1, RDW Std Deviation 47.9 H, RDW Coeff of Shea 13.6, Plt Count 169, MPV 13.7 H, Immature Gran % (Auto) 0.200, Neut % (Auto) 38.4 L, Lymph % (Auto) 47.8 H, [place] % (Auto) 8.6, Eos % (Auto) 4.4, Baso % (Auto) 0.6, Absolute Neuts (auto) 2.6, Absolute Lymphs (auto) 3.17, Nucleated RBC % 0 10/09/22 23:05: Sodium 140, Potassium 4.0, Chloride 107, Carbon Dioxide 28.0, Anion Gap 5, BUN 15, Creatinine 0.81, Estim Creat Clear Calc 59.57, Est GFR (MDRD) Af Amer 93, Est GFR (MDRD) Non-Af 76, BUN/Creatinine Ratio 18.6, Glucose 104, Calcium 9.7, Troponin I High Sens 4 10/10/22 01:54: Troponin I High Sens 6 Rhythm Strip Rhythm Strip: Sinus Rhythm Rate: 86 Ectopy: PAC(s) Radiology Impression Chest X-Ray 10/09/22 23:35 IMPRESSION: No evidence of active intrathoracic disease. Electronically Signed: Ngoc Baca MD at 23:49 EDT , Assessment & Plan Assessment/Plan (1) Chest pain: (2) Diabetes: (3) History of atrial fibrillation: PLAN: Plan Chest pain Place on a monitored bed at the progressive care unit Radiologist impression of chest x-ray: No evidence of active intrathoracic disease. Actual CXR image was independently visualized. No acute cardiopulmonary process was noted. Actual EKG tracing was independently visualized. EKG tracing showed sinus rhythm with no ST or T abnormalities. ASA 81 mg p.o. daily ordered Morphine as needed for pain ordered We will check lipid panel. Initial cardiac enzymes negative. Serial cardiac enzymes ordered Stat EKG as needed for chest pain Treadmill stress test in the AM if the cardiac enzymes are negative. Check echocardiogram Hypertension Blood pressure is not within goal Home blood pressure medication continued. Trend blood pressure and adjust blood pressure medications. Diabetes mellitus Blood glucose is stable Trend BMP Newly diagnosis of A-fib TSH on 10/08/2022 stable. On aspirin, continued. DVT prophylaxis: SCDs ordered. Charges/Coding Visit Charges Inpatient E&M: 21576 Init Hosp L3
--- NOTE | 2022-10-10 02:57 | EKG12_ITS ---
Test Reason : cp Blood Pressure : / mmHG Vent. Rate : 065 BPM Atrial Rate : 065 BPM P-R Int : 158 ms QRS Dur : 082 ms QT Int : 422 ms P-R-T Axes : 004 -01 -02 degrees QTc Int : 438 ms Normal sinus rhythm Normal ECG Confirmed by ANJELICA TINSLEY, ELAINE ([id number]), assistant film editor SHAAN GRAHAM ([id number]) on 10/12/2022 2:29:57 PM Referred By: Calin Buchanan Confirmed By:ELAINE DEJESUS MD
--- NOTE | 2022-10-10 04:21 | ECHOD_ITS ---
Reason For Study: CHEST PAIN Procedure This was a 2D Doppler, Color Flow transthoracic echocardiogram. Exam performed portable in patient room. Left Ventricle Normal LV size. Mild concentric left ventricular hypertrophy. The left ventricular ejection fraction is 60 %. Normal diastology for age. Right Ventricle Normal right ventricle. Atria The left and right atria are normal. Mitral Valve Trivial mitral valve insufficiency. Tricuspid Valve Trivial tricuspid valve insufficiency. Normal pulmonary artery pressure. Aortic Valve Trisinus/trileaflet aortic valve. Trivial aortic valve insufficiency. Pulmonic Valve The pulmonic valve is not well visualized. Great Vessels Normal sized aortic root. Pericardium/Pleural Trivial pericardial effusion. MMode/2D Measurements & Calculations LVIDd: 4.4 cm IVSd: 0.89 cm Ao root diam: 3.4 cm LVIDs: 3.0 cm LVPWd: 1.2 cm RVDd: 2.7 cm FS: 31.8 % LAV(MOD-bp): 50.6 ml LVAd ap4: 26.3 cm2 LVAd ap2: 17.7 cm2 LAV(MOD-bp) Indexed: 27.3 ml/m2 LVLd ap4: 7.9 cm LVLd ap2: 6.7 cm LAV(MOD-sp2): 48.1 ml EDV(MOD-sp4): 71.6 ml EDV(MOD-sp2): 39.6 ml LAV(MOD-sp4): 48.7 ml EDV(sp4-el): 74.5 ml EDV(sp2-el): 39.5 ml LVAs ap4: 13.2 cm2 LVAs ap2: 9.7 cm2 LVLs ap4: 6.8 cm LVLs ap2: 5.8 cm ESV(MOD-sp4): 23.8 ml ESV(MOD-sp2): 14.2 ml ESV(sp4-el): 21.9 ml ESV(sp2-el): 13.7 ml EF(MOD-sp4): 66.8 % EF(MOD-sp2): 64.2 % EF(sp4-el): 70.6 % SV(MOD-sp4): 47.8 ml SV(MOD-sp2): 25.4 ml SV(sp4-el): 52.6 ml LA dimension(2D): 4.2 cm LA A4 area: 17.3 cm2 RA A4 area: 12.8 cm2 Time Measurements MV dec time: 0.26 sec Doppler Measurements & Calculations MV E max slick: 45.6 cm/sec Lat Peak E' Slick: 7.4 cm/sec Med Peak E' Slick: 7.4 cm/sec MV A max slick: 67.7 cm/sec E/E' lat: 6.1 E/E' med: 6.1 MV E/A: 0.67 MV dec slope: 182.1 cm/sec2 Ao V2 max: 126.2 cm/sec LV V1 max: 75.9 cm/sec Ao max P.4 mmHg LV V1 max P.3 mmHg Ao V2 mean: 92.3 cm/sec LV V1 mean P.3 mmHg Ao mean P.8 mmHg LV V1 mean: 52.7 cm/sec Ao V2 VTI: 27.9 cm LV V1 VTI: 16.6 cm AV (velocity ratio): 0.59 PA V2 max: 83.6 cm/sec TR max slick: 199.2 cm/sec TR max P.9 mmHg ECHO/Echo Complete Interpretation Summary Mild concentric left ventricular hypertrophy. The left ventricular ejection fraction is 60 %. Ordering Physician: Pallavi Ng Referring Physician: Calin Buchanan Performed By: Ashley Vela, MELVIN, RVT
[2022-10-10 06:33] LABS: Absolute Lymphocyte Count 2.31 X10^3/uL (0.83-4.51); Absolute Neutrophil Count 2.2 X10^3/uL (2.0-7.7); Basophil# 0.02 X10^3/uL; Basophil% 0.4 % (0-1); Eosinophil# 0.28 X10^3/uL; Eosinophils% 5.4 % (0-5); Hematocrit 45.1 % (37-47); Lymphocyte # 2.31 X10^3/ul (0.83-4.51); Lymphocyte % 44.2 % (19-41); Mean Corp Hgb Conc 33.3 g/dL (32-36); Mean Corpuscular Hgb 32.1 pg (27.0-32.0); Mean Corpuscular Volume 96.6 fL (81-99); Mean Platelet Vol. 14.1 fl (6.2-12.0); Monocyte# 0.42 X10^3/uL; NRBC Flagged by Analyzer 0 % (0-5); Neutrophil # 2.19 X10^3/uL (2.7-7.7); Neutrophil % 41.8 % (47-70); Platelet Count 145 K/mm3 (150-450); RBC Distribution Width CV 13.8 % (11.6-14.6); RBC Distribution Width SD 48.8 fl (35.1-43.9); Red Blood Count 4.67 M/mm3 (4.2-5.4); White Blood Count 5.2 K/mm3 (4.4-11.0)
[2022-10-10 07:14] LABS: Troponin-I HS 4 pg/mL (3.0-54.0)
[2022-10-10 07:17] LABS: Anion Gap 5 (5-15); BUN 14 mg/dL (7-18); BUN/Creat Ratio 18.3 RATIO (10-20); Calcium,Total 9.3 mg/dL (8.5-10.1); Chloride 108 mmol/L (98-107); Cholesterol 166 mg/dL (200); Creatinine, Serum 0.76 mg/dL (0.55-1.02); EST Glomerular Filtration Rate 81 mL/min (>60); Est Glom Filt Rate - Afr Amer 98 mL/min (>60); Estimated Creatinine Clearance 63.49 ml/min; Glucose 113 mg/dL (74-106); High Density Lipoprotein 43 mg/dL; Potassium 4.1 mmol/L (3.5-5.1); Sodium Level 139 mmol/L (136-145); Triglycerides 102 mg/dL; Very Low Density Lipoprotein 20 mg/dL (5-40)
[2022-10-10] MEDS: Cyanocobalamin 500 MCG Tablet 1000 MCG PO (10:20)
[2022-10-10] MEDS: Aspirin 81 MG TAB.CHEW PO (10:20)
[2022-10-10] MEDS: Lisinopril 10 MG Tablet PO (10:20)
--- NOTE | 2022-10-10 12:49 | STRESSREP ---
Stress Test Report Date: 10/10/2022 Procedure: Exercise tolerance test/imaging study Indications: Chest pain Consent: Per the patient Procedure: The patient exercised on a Jeet protocol for 7 minutes achieving a peak heart rate of 139 bpm (87% predicted maximal heart rate) with a peak blood pressure 150/72 mmHg and a peak MET capacity of 10.0 METs. The baseline ECG demonstrated normal sinus rhythm. The peak exercise ECG demonstrated no ischemic changes. Occasional PACs were noted during exercise and in recovery. The functional capacity was considered average. There was complaint of minimal chest discomfort with exercise. The examination was discontinued secondary to target heart rate being achieved. The patient was injected with 12.0 mCi of technetium 99m Cardiolite and subsequently rest SPECT Cardiolite nuclear imaging was obtained in the horizontal long, vertical long, and short axis views. Post-exercise, the patient was injected with 36.0 mCi of technetium 99m Cardiolite and subsequently stress SPECT Cardiolite nuclear imaging was obtained in the horizontal long, vertical long, and short axis views. A gated Cardiolite study at peak stress was obtained. Rest and stress SPECT Cardiolite nuclear imaging status post realignment, normalization, and attenuation correction, demonstrates the appearance of relative uniform tracer uptake and myocardial perfusion appearing within normal limits. There is end systolic thickening and brightening. The gated Cardiolite study demonstrates myocardial thickening and inward wall motion. The reported LVEF is 73%. Impression: 1. Technically adequate (percent predicted maximal heart rate greater than 85%) exercise tolerance test 2. Peak exercise ECG with no ischemic changes 3. Occasional PACs noted. 4. Rest and stress SPECT Cardiolite nuclear imaging demonstrate no fixed or reversible perfusion defects. 5. The gated Cardiolite study reports an LVEF of 73%. This note was generated with [employer] software. It may contain incorrect words, spelling, and punctuation that were not noted in checking the note before signing.
--- NOTE | 2022-10-10 14:20 | DCINST_ITS ---
Discharge Instructions Diet Discharge Diet: Low fat / Low cholesterol Activity Discharge Activity: Return to Normal Activity Dressing / Incision Call your doctor if you observe: Fever of 101 or Higher, Shortness of breath, Dizziness, Fainting spells, Swelling in the ankles, Chest pain and Increased palpitations (irregular heartbeat) Follow Up Care Test Results: Test results from this visit will be discussed in further detail at your follow- up appointment, if applicable. Discharge Plan Admission Admit Date/Time: 10/10/22 02:47 Attending Provider: Sebastian Castellano Primary Care Provider: Pallavi Ng Consulting Providers: Calin Buchanan Discharge Orders/Prescriptions Prescriptions: Continued cyanocobalamin (vitamin B-12) [Vitamin B-12] 1,000 mcg tablet 1,000 mcg PO DAILY Label Comments: TAKE 1 TABLET BY MOUTH EVERY DAY methotrexate sodium 2.5 mg tablet 2.5 mg PO TU Label Comments: TAKE 5 TABLETS BY MOUTH ONE TIME A WEEK. lisinopril 10 mg tablet 10 mg PO DAILY Label Comments: TAKE 1 TABLET BY MOUTH EVERY DAY minocycline 50 mg capsule 50 mg PO DAILY Label Comments: TAKE 1 CAPSULE BY MOUTH EVERY DAY folic acid 1 mg tablet 1 mg PO DAILY Label Comments: TAKE 1 TABLET BY MOUTH EVERY DAY aspirin 81 mg Tablet 81 mg PO DAILY Referrals / Follow Up: Pallavi Ng, [Primary Care Provider] - Within 1 Week Disposition Disposition (needs filled in before D/C Order can be placed): Home, Self Care
--- NOTE | 2022-10-10 14:42 | PCM.DC.SUM ---
Providers Date of Admission: 10/10/22 Primary Care Physician: Pallavi Ng DO Reason For Visit: CHEST PAIN Diagnosis Discharge Diagnosis (1) Chest pain: Status: Acute Code(s): R07.9 - Chest pain, unspecified (2) Diabetes: Status: Acute Code(s): E11.9 - Type 2 diabetes mellitus without complications (3) History of atrial fibrillation: Status: Acute Code(s): Z86.79 - Personal history of other diseases of the circulatory system Medications at Discharge Home Medications aspirin 81 mg tablet 81 mg PO DAILY 10/09/22 cyanocobalamin (vitamin B-12) 1,000 mcg tablet (Vitamin B-12) 1,000 mcg PO DAILY 10/09/22 folic acid 1 mg tablet 1 mg PO DAILY 10/09/22 lisinopril 10 mg tablet 10 mg PO DAILY 10/09/22 methotrexate sodium 2.5 mg tablet 2.5 mg PO TU 10/09/22 minocycline 50 mg capsule 50 mg PO DAILY 10/09/22 Hospital Course Operations None Procedures 2-D Echocardiogram and Stress test Summary of Care Provided Minutes Spent on Discharge: 34 Hospital Course: Per HPI: SON BUSCH, is a 62 F with a significant history of glaucoma;? Sjogren disease; hematochromatosis; diabetes mellitus and GERD who presents to the emergency department with chest pain that started several hours before presentation.? The chest pain is located at the left chest and is nonradiating.? Intensity of the chest pain is 8-9.? She described the chest pain as sharp.? Moving makes the person worse and rest makes it better. She denies any associated symptoms of nausea, vomiting, diaphoresis or shortness of breath. A day before presentation patient came to emergency department with symptoms of A-fib and she was found to be in A-fib with RVR for the first time.? Patient was discharged home on daily aspirin and to follow-up with cardiology. Hospital Course: 1. Chest pain/paroxysmal A-fib/HTN?62-year-old female presented to the hospital with left-sided sharp chest pain. This has since resolved, her EKG was nonischemic and troponins were all negative. Echo and stress test were unremarkable. She denies any further episodes of chest pain, vital signs are unremarkable I discussed with her the plan for possible discharge today she expressed understanding of the risk benefits of going home and would like to go home today. We will continue all of her home medications and I recommend that she follow-up with her PCP in 3 to 5 days. 2. Sjogren's with chronic medical conditions which complicate her care. Her home medications were continued where appropriate Physical Exam Narrative General: Alert, Oriented x3, Cooperative, No apparent distress HEENT: Atraumatic, PERRLA, EOMI, Normocephalic Oral: Moist Mucosa Neck: Supple, No JVD Lungs: Clear to auscultation, Normal air movement, No rhonchi, No wheeze, No rales Cardiovascular: Regular rate, Regular Rhythm, Normal S1, Normal S2, No murmurs Abdomen: Soft, Non Tender, Non-Distended, No Hepato-splenomegaly Extremities: No edema, Capillary Refill Less than 3 Seconds Skin: No rashes, No breakdown Musculoskeletal: No Tenderness to Palpation of Joints or Extremities Neurological: Cranial nerves II-XII grossly intact, Motor Exam 5/5 strength throughout, Sensory exam intact to light touch and pain Psych/Mental Status: Normal Affect, Appropriate Weight / BMI Weight Weight: 180 lb 8.937 oz Body Mass Index (BMI) 31.9 ABG / Lab / Microbiology Data Result Diagrams: 10/10/22 05:27 10/10/22 05:27 Laboratory: Laboratory Results - last 24 hr 10/09/22 23:05: WBC 6.6, RBC 4.73, Hgb 15.4 H, Hct 45.1, MCV 95.3, MCH 32.6 H, MCHC 34.1, RDW Std Deviation 47.9 H, RDW Coeff of Shea 13.6, Plt Count 169, MPV 13.7 H, Immature Gran % (Auto) 0.200, Neut % (Auto) 38.4 L, Lymph % (Auto) 47.8 H, [place] % (Auto) 8.6, Eos % (Auto) 4.4, Baso % (Auto) 0.6, Absolute Neuts (auto) 2.6, Absolute Lymphs (auto) 3.17, Nucleated RBC % 0 10/09/22 23:05: Sodium 140, Potassium 4.0, Chloride 107, Carbon Dioxide 28.0, Anion Gap 5, BUN 15, Creatinine 0.81, Estim Creat Clear Calc 59.57, Est GFR (MDRD) Af Amer 93, Est GFR (MDRD) Non-Af 76, BUN/Creatinine Ratio 18.6, Glucose 104, Calcium 9.7, Troponin I High Sens 4 10/10/22 01:54: Troponin I High Sens 6 10/10/22 05:27: WBC 5.2, RBC 4.67, Hgb 15.0, Hct 45.1, MCV 96.6, MCH 32.1 H, MCHC 33.3, RDW Std Deviation 48.8 H, RDW Coeff of Shea 13.8, Plt Count 145 L, MPV 14.1 H, Immature Gran % (Auto) 0.200, Neut % (Auto) 41.8 L, Lymph % (Auto) 44.2 H, [place] % (Auto) 8.0, Eos % (Auto) 5.4 H, Baso % (Auto) 0.4, Absolute Neuts (auto) 2.2, Absolute Lymphs (auto) 2.31, Nucleated RBC % 0 10/10/22 05:27: Sodium 139, Potassium 4.1, Chloride 108 H, Carbon Dioxide 26.0, Anion Gap 5, BUN 14, Creatinine 0.76, Estim Creat Clear Calc 63.49, Est GFR (MDRD) Af Amer 98, Est GFR (MDRD) Non-Af 81, BUN/Creatinine Ratio 18.3, Glucose 113 H, Calcium 9.3, Triglycerides 102, Cholesterol 166, LDL Cholesterol 103, VLDL Cholesterol 20, HDL Cholesterol 43 10/10/22 05:27: Troponin I High Sens 4 Radiography Diagnostic Testing: Radiology Impression Chest X-Ray 10/09/22 23:35 IMPRESSION: No evidence of active intrathoracic disease. Electronically Signed: Ngoc Baca MD at 23:49 EDT , Echocardiogram 10/10/22 04:21 Interpretation Summary Mild concentric left ventricular hypertrophy. The left ventricular ejection fraction is 60 %. Ordering Physician: Pallavi Ng Referring Physician: Calin Buchanan Performed By: Ashley Vela RDCS, RVT D/C Instructions Discharge Diet: Low fat / Low cholesterol Call your doctor if you observe: Fever of 101 or Higher, Shortness of breath, Dizziness, Fainting spells, Swelling in the ankles, Chest pain and Increased palpitations (irregular heartbeat) Meaningful Use Info Meaningful Use Diagnoses (Choose all that apply): None applicable Discharge Plan Admission Admit Date/Time: 10/10/22 02:47 Attending Provider: Sebastian Castellano Primary Care Provider: Pallavi Ng Consulting Providers: Calin Buchanan Discharge Orders/Prescriptions Prescriptions: Continued cyanocobalamin (vitamin B-12) [Vitamin B-12] 1,000 mcg tablet 1,000 mcg PO DAILY Label Comments: TAKE 1 TABLET BY MOUTH EVERY DAY methotrexate sodium 2.5 mg tablet 2.5 mg PO TU Label Comments: TAKE 5 TABLETS BY MOUTH ONE TIME A WEEK. lisinopril 10 mg tablet 10 mg PO DAILY Label Comments: TAKE 1 TABLET BY MOUTH EVERY DAY minocycline 50 mg capsule 50 mg PO DAILY Label Comments: TAKE 1 CAPSULE BY MOUTH EVERY DAY folic acid 1 mg tablet 1 mg PO DAILY Label Comments: TAKE 1 TABLET BY MOUTH EVERY DAY aspirin 81 mg Tablet 81 mg PO DAILY Referrals / Follow Up: Pallavi Ng, [Primary Care Provider] - Within 1 Week Disposition Disposition (needs filled in before D/C Order can be placed): Home, Self Care Charges/Coding Visit Charges Inpatient E&M: 99398 Disch Hosp >30min
== END 2022-10-10 14:21 | disposition home or self-care (01) ==
LOC: ED 10-10 01:18 → PCU 10-10 03:00
PROVIDERS: Admitting Provider Hospitalist; Emergency Provider Emergency Medicine; PCP Family Medicine; Referring Provider Hospitalist; Visit Provider Family Medicine
DX: R07.89 Other chest pain (principal); M35.00 Sjogren syndrome, unspecified; I48.0 Paroxysmal atrial fibrillation; E11.9 Type 2 diabetes mellitus without complications; K21.9 Gastro-esophageal reflux disease without esophagitis; Z79.82 Long term (current) use of aspirin; Z79.899 Other long term (current) drug therapy; E83.119 Hemochromatosis, unspecified; H40.9 Unspecified glaucoma
CPT/HCPCS: Q9957; 36415; 71045; 78452; 80048; 80061; 84484; 85025; 93005; 93017; 93306; 99221; 99285; A9500; A4216; G0378

== ENCOUNTER → 2022-11-03 | Outpatient (CLI) | payer MEDICAID, SELFPAY | END | disposition home or self-care (01) | LOC: LAB 10:13 | PROVIDERS: PCP Family Medicine; Referring Provider Ophthalmology; Visit Provider Ophthalmology | DX: H04.123 Dry eye syndrome of bilateral lacrimal glands (principal); M35.00 Sjogren syndrome, unspecified | CPT/HCPCS: 36415 ==

== ENCOUNTER 2023-01-27 10:58 | Outpatient (CLI) | payer MEDICAID, SELFPAY | END 2023-01-27 23:59 | disposition home or self-care (01) | LOC: LAB 10:59 | PROVIDERS: PCP Family Medicine; Visit Provider Ophthalmology | DX: M35.00 Sjogren syndrome, unspecified (principal) | CPT/HCPCS: 36415 ==

== ENCOUNTER → 2023-03-29 | Outpatient (CLI) | payer MEDICAID, SELFPAY | END | disposition home or self-care (01) | LOC: LAB 09:09 | PROVIDERS: PCP Family Medicine; Referring Provider Ophthalmology; Visit Provider Ophthalmology | DX: Z79.899 Other long term (current) drug therapy (principal) | CPT/HCPCS: 36415 ==

== ENCOUNTER → 2023-07-20 | Outpatient (CLI) | payer SELFPAY ==
[2023-07-20 11:43] LABS: SERUM TEARS COLLECTION SPECIMEN PROCESSED
== END | disposition home or self-care (01) ==
LOC: LAB 09:40
PROVIDERS: PCP Family Medicine; Referring Provider Ophthalmology; Visit Provider Ophthalmology
DX: H04.123 Dry eye syndrome of bilateral lacrimal glands (principal)

== ENCOUNTER → 2023-11-01 | Outpatient (CLI) | payer SELFPAY ==
[2023-11-01 12:38] LABS: SERUM TEARS COLLECTION SPECIMEN PROCESSED
== END | disposition home or self-care (01) ==
PROVIDERS: PCP Family Medicine; Referring Provider Ophthalmology; Visit Provider Ophthalmology
DX: H04.123 Dry eye syndrome of bilateral lacrimal glands (principal)
CPT/HCPCS: 36415

== ENCOUNTER 2024-01-12 11:22 | Emergency (ER) | payer MEDICAID, SELFPAY ==
[2024-01-12 11:23] VITALS: BP 152/99; PULSE 58; RESP 16; TEMP 36.6; O2SAT 98
[2024-01-12 11:25] VITALS: BMI 33.2
--- NOTE | 2024-01-12 11:53 | EX.ED.DYSGE1 ---
HPI History of Present Illness Chief Complaint: Dizziness Narrative Narrative: Patient is a 63-year-old female past medical history hypertension, Sjogren's disease, hemochromatosis, GERD, diabetes who presents to the emerged part with chief complaint of back pain. Patient states that she was getting an MRI today for pancreatic cysts and notes that she had left-sided lower back pain developed some sweating and lightheadedness with this. Triage note said dizziness she did not state that she was dizzy after clarification. She states that she does not feel well. Patient denies any trauma recent falls or injuries or pick anything up heavy to cause her back pain. States that she been urinating normally for self did note that she has had some blood in her urine which she has been following up with her primary care physician on this and states that she has been having normal bowel movements. Denies any blood thinning medications. Denies any IV drug use, smoking and has never smoked. [facility] Medical History Essential hypertension Melanoma Meibomian gland dysfunction (MGD) Hemochromatosis Hx of gastroesophageal reflux (GERD) GERD (gastroesophageal reflux disease) History of diabetes mellitus History of atrial fibrillation Diabetes Sjogren's disease Glaucoma Home Medications ?Medication ?Instructions ?Recorded ?Last Taken ?Type aspirin 81 mg tablet 81 mg PO DAILY 10/09/22 Unknown History cyanocobalamin (vitamin B-12) 1,000 mcg PO DAILY 10/09/22 Unknown History 1,000 mcg tablet (Vitamin B-12) folic acid 1 mg tablet 1 mg PO DAILY 10/09/22 Unknown History meloxicam 15 mg tablet 15 mg PO DAILY 10/12/22 Unknown History methotrexate sodium 2.5 mg tablet 12.5 mg PO TU 10/12/22 Unknown History minocycline 50 mg capsule 50 mg PO BID 10/12/22 Unknown History pilocarpine HCl 5 mg tablet 5 mg PO TID 10/12/22 Unknown History prednisolone acetate 1 % eye 1 drp ophthalmic (eye) 4X/DAY 10/12/22 Unknown History drops,suspension tafluprost (PF) 0.0015 % eye drops 1 drp ophthalmic (eye) QPM 10/12/22 Unknown History in a dropperette cholecalciferol (vitamin D3) 50 50 mcg PO DAILY 10/21/22 Unknown History mcg (2,000 unit) capsule lisinopril 10 mg tablet 5 mg PO DAILY 03/24/23 Unknown History cyclobenzaprine 5 mg tablet 5 mg PO TID PRN muscle spasm #10 01/12/24 Unknown Rx tabs Allergy/AdvReac Type Severity Reaction Status Date / Time doxycycline Allergy Unknown GI Upset Verified 01/12/24 11:44 erythromycin base Allergy Unknown GI Upset Verified 01/12/24 11:44 hydroxychloroquine (From Allergy Unknown Unknown Verified 01/12/24 11:44 Plaquenil) timolol Allergy Unknown unknown Verified 01/12/24 11:44 amoxicillin Allergy Nausea/Vom/ Verified 01/12/24 11:44 Diarrhea metformin Allergy Nausea/Vom/ Verified 01/12/24 11:25 Diarrhea Family History Mother Glaucoma Lymphoma Father Pancreatic cancer Brother Colon cancer Sister Heart disease Surgical History Hx of knee surgery Social History household members: none Smoking Status: Never smoker alcohol intake: never substance use type: does not use ROS ROS ED ROS Narrative Constitutional: Denies fevers, chills, headaches, lightness, dizziness Eyes: Denies any changes in vision Cardiovascular: Denies chest pain or palpitations Respiratory: Denies coughing wheezing shortness of breath Abdomen: Denies abdominal pain nausea vomit diarrhea. States that she has had normal bowel movements : States that she has been having blood in her urine for a significant time now as noted above Neurological: Denies numbness, discontinuing Musculoskeletal: Complains of back pain as noted above Skin: Denies any rashes or lesions EXAM Physical Exam Narrative Exam Narrative: General: Patient was lying in bed rest comfortably did not appear to be in acute distress Head: Atraumatic, normocephalic Eyes: PERRL bilateral, EOMI bilateral, no conjunctival injection noted Neck: Soft and supple, trachea midline Cardiovascular: Regular rate and rhythm no murmurs gallops rubs noted Respiratory: Clear to auscultation bilaterally no rales rhonchi or wheezes noted Abdomen: Soft, nondistended, no tenderness palpation, bowel sounds present x 4 Musculoskeletal: Patient had some left-sided CVA tenderness noted on exam no midline tenderness palpation midline of the thoracolumbar spine. Patient had a increasing pain in her left lower back when doing a left-sided leg raise. States that did not radiate anywhere down her leg Extremities: +5/5 strength noted in the bilateral upper and lower extremities, no pedal edema on exam, DP pulses +2/4 in the bilateral lower extremities Neurological: Patient is following commands knew that she was at [facility] year is 2023. Sensation grossly intact no saddle anesthesia noted Skin: Warm, dry, intact Const Vital Signs: 01/12/24 11:23 01/12/24 13:22 01/12/24 15:00 Temperature 97.8 F Temperature Source Temporal Pulse Rate 58 L 65 67 Respiratory Rate 16 18 20 H Blood Pressure 152/99 H 133/74 H 142/77 H Blood Pressure Mean 116 93 98 Pulse Ox 98 97 95 Oxygen Delivery Method Room Air Room Air MDM MDM MDM Narrative Medical decision making narrative: Patient is a 63-year-old female who presented to the emerged part with a chief complaint of back pain. Patient will have a workup performed here on the differential diagnose includes but not limited to urolithiasis, UTI, pyelonephritis, musculoskeletal strain, AAA although do feel this less likely as she has never smoked in her life. Once workup is obtained reviewed she will be reevaluated. Patient be given IV fluids, morphine Zofran. Patient CBC reviewed and showed no evidence leukocytosis white blood count normal 5.8, hemoglobin 15.1, platelet count was notably 135. Patient sodium normal 138, potassium normal at 4.4, creatinine was 1.05. Patient's AST and ALT were 49 and 64 respectively, lipase normal at 68, urinalysis showed 250 occult blood which she has been having blood in her urine for a significant mount time no bacteria noted no white blood cells seen. I did add on a CT abdomen pelvis without contrast that she had an MRI with contrast today to ensure that he does not have a kidney stones which showed a solitary gallstone with fatty infiltration of the liver small bilateral inguinal hernias noted. On reevaluation of the patient she is feeling better would like to go home at this point time. Patient was encouraged to follow-up on her MRI results with her physician and take ibuprofen and Tylenol for pain control for her musculoskeletal back pain. Patient will be given prescription for cyclobenzaprine as well. She was advised to return with worsening symptoms or other concerns. Her and her son at bedside are agreeable with this plan all question concerns answered she was discharged home in stable condition. Lab Data Labs: Laboratory Results - last 24 hr 01/12/24 01/12/24 12:05 13:16 WBC 5.8 RBC 4.49 Hgb 15.1 H Hct 45.1 MCV 100.4 H MCH 33.6 H MCHC 33.5 RDW Std Deviation 46.5 H RDW Coeff of Shea 12.5 Plt Count 135 L MPV 13.3 H Immature Gran % (Auto) 0.200 Neut % (Auto) 62.4 Lymph % (Auto) 26.8 Sutton % (Auto) 5.3 Eos % (Auto) 5.0 Baso % (Auto) 0.3 Absolute Neuts (auto) 3.6 Absolute Lymphs (auto) 1.56 Nucleated RBC % 0 Sodium 138 Potassium 4.4 Chloride 107 Carbon Dioxide 24.0 Anion Gap 6 BUN 17 Creatinine 1.05 H Estim Creat Clear Calc 56.65 Est GFR (MDRD) Af Amer 68 Est GFR (MDRD) Non-Af 56 L BUN/Creatinine Ratio 16.2 Glucose 184 H Calcium 9.3 Total Bilirubin 1.10 H AST 49 H ALT 64 H Alkaline Phosphatase 90 Total Protein 7.5 Albumin 3.8 Globulin 3.7 Albumin/Globulin Ratio 1.0 Lipase 68 Urine Color Yellow Urine Clarity Sl. Cloudy Urine pH 6.0 Ur Specific Davidson 1.015 Urine Protein 15 H Urine Glucose (UA) Normal Urine Ketones Negative Urine Occult Blood 250 H Urine Nitrite Negative Urine Bilirubin Negative Urine Urobilinogen Normal Ur Leukocyte Esterase Negative Urine RBC 10-25 SEEN Urine WBC 0 SEEN Ur Squamous Epith Cells 0-5 SEEN Urine Bacteria 0 SEEN Urine Mucus 1+ Radiography Diagnostic Testing: Clinical Impression(s) from Imaging Studies Abdomen/Pelvis CT 01/12/24 13:40 IMPRESSION: Fatty infiltration of the liver. Solitary gallstone. Small bilateral inguinal hernias. Electronically Signed: Anshu Saldivar MD at 14:26 EDT , Discharge Plan Triage Chief Complaint: Dizziness Other Complaint: Back ED Provider: Jose L Brown Dx/Rx/DC Orders Clinical Impression: Back pain Prescriptions: New cyclobenzaprine 5 mg tablet 5 mg PO TID PRN (Reason: muscle spasm) Qty: 10 0RF No Action pilocarpine HCl 5 mg tablet 5 mg PO TID meloxicam 15 mg tablet 15 mg PO DAILY prednisolone acetate 1 % drops,suspension 1 drp ophthalmic (eye) 4X/DAY Patient Comments: USE 1 DROP IN THE RIGHT EYE FOUR TIMES DAILY. FOR USE AFTER SURGERY. tafluprost (PF) 0.0015 % dropperette 1 drp ophthalmic (eye) QPM cholecalciferol (vitamin D3) 50 mcg (2,000 unit) capsule 50 mcg PO DAILY cyanocobalamin (vitamin B-12) [Vitamin B-12] 1,000 mcg tablet 1,000 mcg PO DAILY Patient Comments: TAKE 1 TABLET BY MOUTH EVERY DAY folic acid 1 mg tablet 1 mg PO DAILY Patient Comments: TAKE 1 TABLET BY MOUTH EVERY DAY aspirin 81 mg Tablet 81 mg PO DAILY methotrexate sodium 2.5 mg tablet 12.5 mg PO TU Patient Comments: TAKE 5 TABLETS BY MOUTH ONE TIME A WEEK. minocycline 50 mg capsule 50 mg PO BID lisinopril 10 mg tablet 5 mg PO DAILY Patient Comments: TAKE 1 TABLET BY MOUTH EVERY DAY Primary Care Provider: Bo Gilmore Referrals: Bo Gilmore MD [Primary Care Provider] - Activity Restrictions/Additional Instructions: Follow with your primary care physician outpatient setting. Follow-up on your MRI results. Take ibuprofen Tylenol for pain control use muscle relaxers as prescribed do not operate anything under influence of these medications. Return with worsening symptoms or other concerns. Print Language: Gabonese Disposition Disposition: Home, Self Care
--- NOTE | 2024-01-12 11:57 | EKG12_ITS ---
Test Reason : Blood Pressure : / mmHG Vent. Rate : 065 BPM Atrial Rate : 065 BPM P-R Int : 160 ms QRS Dur : 078 ms QT Int : 432 ms P-R-T Axes : 022 013 029 degrees QTc Int : 449 ms Normal sinus rhythm Normal ECG Confirmed by Fritz Queen ([id number]), newspaper copy editor ASTON RATLIFF ([id number]) on 01/14/2024 9:45:21 AM Referred By: Confirmed By:Fritz Queen
[2024-01-12] MEDS: Ondansetron 4 MG/2 ML Vial IV (12:07)
[2024-01-12] MEDS: 0.9% Normal Saline (1000mL) 1,000 ML 999 ML IV (12:07)
[2024-01-12] MEDS: Morphine 4 MG/ML Syringe IV (12:07)
[2024-01-12 12:19] LABS: Absolute Lymphocyte Count 1.56 X10^3/uL (0.83-4.51); Absolute Neutrophil Count 3.6 X10^3/uL (2.0-7.7); Basophil# 0.02 X10^3/uL; Basophil% 0.3 % (0-1); Eosinophil# 0.29 X10^3/uL; Hematocrit 45.1 % (37-47); Hemoglobin 15.1 g/dL (12.0-15.0); Lymphocyte # 1.56 X10^3/ul (0.83-4.51); Lymphocyte % 26.8 % (19-41); Mean Corp Hgb Conc 33.5 g/dL (32-36); Mean Corpuscular Hgb 33.6 pg (27.0-32.0); Mean Corpuscular Volume 100.4 fL (81-99); Mean Platelet Vol. 13.3 fl (6.2-12.0); Monocyte# 0.31 X10^3/uL; Monocyte% 5.3 % (0-10); NRBC Flagged by Analyzer 0 % (0-5); Neutrophil # 3.64 X10^3/uL (2.7-7.7); Neutrophil % 62.4 % (47-70); Platelet Count 135 K/mm3 (150-450); RBC Distribution Width CV 12.5 % (11.6-14.6); RBC Distribution Width SD 46.5 fl (35.1-43.9); Red Blood Count 4.49 M/mm3 (4.2-5.4); White Blood Count 5.8 K/mm3 (4.4-11.0)
[2024-01-12 12:38] LABS: AST(SGOT) 49 U/L (15-37); Alanine Aminotransfer ALT/SGPT 64 U/L (13-56); Albumin, Serum 3.8 g/dL (3.2-5.0); Alkaline Phosphatase 90 U/L (45-117); Anion Gap 6 (5-15); BUN 17 mg/dL (7-18); BUN/Creat Ratio 16.2 RATIO (10-20); Calcium,Total 9.3 mg/dL (8.5-10.1); Chloride 107 mmol/L (98-107); Creatinine, Serum 1.05 mg/dL (0.55-1.02); EST Glomerular Filtration Rate 56 mL/min (>60); Est Glom Filt Rate - Afr Amer 68 mL/min (>60); Estimated Creatinine Clearance 56.65 ml/min; Globulin 3.7 g/dL (2.2-4.2); Glucose 184 mg/dL (74-106); Lipase 68 U/L (13-75); Potassium 4.4 mmol/L (3.5-5.1); Protein, Total 7.5 g/dL (6.4-8.2); Sodium Level 138 mmol/L (136-145)
[2024-01-12 13:20] LABS: Bacteria 0 SEEN /hpf (None Seen); White Blood Cells 0 SEEN /hpf (0-5)
[2024-01-12 13:22] VITALS: BP 133/74; PULSE 65; RESP 18; O2SAT 97
[2024-01-12 13:34] LABS: Color, Urine Yellow (Yellow); Glucose, Dipstick Normal (Normal); Ketone-Dipstick Negative (Negative); Leukocyte Esterase-Dipstick Negative /ul (Negative); Nitrite-Dipstick Negative (Negative); Occult Blood-Urine 250 /ul (Negative); Protein-Dipstick 15 mg/dl (Negative); Specific Gravity, Urine 1.015 (1.002-1.030); Urine Bilirubin Dipstick Negative (Negative); Urine Clarity Sl. Cloudy (Clear); Urine Urobilinogen Normal (Normal)
--- NOTE | 2024-01-12 13:40 | CT_ITS ---
STUDY: CT ABDOMEN AND PELVIS WITHOUT CONTRAST REASON FOR EXAM: Female, 63 years old. Left flank pain. Dizziness. Nausea. RADIATION DOSAGE (If Supplied By Facility): CTDIvol = ( 14.13 ) mGy, DLP = ( 702.39 ) mGycm TECHNIQUE: Transaxial images were obtained from the dome of the diaphragm to the symphysis pubis without oral contrast, and without intravenous contrast. Sagittal and coronal images were reconstructed. Individualized dose optimization techniques were used for this CT. COMPARISON: None. FINDINGS: Increased linear markings at the lung bases suggesting bibasilar atelectasis and/or scarring. Coronary artery calcification. There is decreased attenuation of the liver consistent with steatosis. There is a solitary gallstone. Normal spleen. Normal pancreas. Normal bilateral adrenal glands. Normal right kidney. Normal left kidney. Contrast is seen in the collecting system from recent MRI contrast injection. There is a small hiatal hernia. Normal small intestine. Normal colon. The appendix is visualized and appears normal. There is scattered atherosclerotic calcification of the abdominal aorta, without a demonstrated aneurysm. Normal inferior vena cava. Normal retroperitoneum. Normal urinary bladder. Bilateral tubal ligation clips. Small bilateral inguinal hernias containing fat. There are degenerative changes of the visualized lumbar spine. CT/Abdomen/Pelvis without Cont IMPRESSION: Fatty infiltration of the liver. Solitary gallstone. Small bilateral inguinal hernias. Electronically Signed: Anshu Saldivar MD at 14:26 EDT ,
[2024-01-12 13:41] LABS: Red Blood Cells-Urine 10-25 SEEN /hpf (0-5); Squamous Epithelial Cells - UA 0-5 SEEN /hpf (5-10)
[2024-01-12 13:42] LABS: Mucous, Urine 1+ /hpf (<or=2+)
[2024-01-12 15:00] VITALS: BP 142/77; PULSE 67; RESP 20; O2SAT 95
[2024-01-12 15:43] VITALS: BP 140/82; PULSE 66; RESP 17; TEMP 36.3; O2SAT 96
== END 2024-01-12 16:05 | disposition home or self-care (01) ==
PROVIDERS: Emergency Provider Emergency Medicine; PCP Family Medicine; Visit Provider Emergency Medicine
DX: M54.9 Dorsalgia, unspecified (principal); E11.9 Type 2 diabetes mellitus without complications
CPT/HCPCS: 74176; 80053; 81001; 83690; 85025; 93005; 96361; 96374; 96375; 99284; J7030; A4216; J2405

== ENCOUNTER 2024-01-16 19:27 | Emergency (ER) | payer MEDICAID, SELFPAY ==
[2024-01-16 19:28] VITALS: BP 161/96; PULSE 77; RESP 18; TEMP 36.6; O2SAT 96; BMI 32.5
--- NOTE | 2024-01-16 19:51 | EDS_ITS ---
HPI History of Present Illness Chief Complaint: Back Informant: patient Onset/Context/Timing Onset: Today Context: Gradual Onset Timing: Continuous Quality: Sharp and Aching Location: Lumbar Worsened by: improves with Nothing Relieved by: Nothing Associated Symptoms Associated Symptoms: Negative for Numbness, Tingling, Radiation to Right Leg, Radiation to Left Leg, Fever, Abdominal Pain, Dysuria, Unable to Ambulate, Unable to Transfer, Urinary Retention, Urinary Incontinence, Constipation or Fecal Incontinence Narrative Narrative: Patient presents with left lower back pain that became worse today. Patient states she had a similar episode on and was seen here. Patient had a CT scan done at that time which was negative. Patient states her pain improved at that time. Patient states that today her pain started to return. Patient states she noted some blood in her urine but denies any dysuria. Patient admits to some nausea but denies any vomiting. Patient denies any radiation of the pain. Patient denies any bowel or bladder changes. Patient denies any saddle anesthesia. [facility] Medical History Essential hypertension Melanoma Meibomian gland dysfunction (MGD) Hemochromatosis Hx of gastroesophageal reflux (GERD) GERD (gastroesophageal reflux disease) History of diabetes mellitus History of atrial fibrillation Diabetes Sjogren's disease Glaucoma Home Medications ?Medication ?Instructions ?Recorded ?Last Taken ?Type aspirin 81 mg tablet 81 mg PO DAILY 10/09/22 Unknown History cyanocobalamin (vitamin B-12) 1,000 mcg PO DAILY 10/09/22 Unknown History 1,000 mcg tablet (Vitamin B-12) folic acid 1 mg tablet 1 mg PO DAILY 10/09/22 Unknown History meloxicam 15 mg tablet 15 mg PO DAILY 10/12/22 Unknown History methotrexate sodium 2.5 mg tablet 12.5 mg PO TU 10/12/22 Unknown History minocycline 50 mg capsule 50 mg PO BID 10/12/22 Unknown History pilocarpine HCl 5 mg tablet 5 mg PO TID 10/12/22 Unknown History prednisolone acetate 1 % eye 1 drp ophthalmic (eye) 4X/DAY 10/12/22 Unknown History drops,suspension tafluprost (PF) 0.0015 % eye drops 1 drp ophthalmic (eye) QPM 10/12/22 Unknown History in a dropperette cholecalciferol (vitamin D3) 50 50 mcg PO DAILY 10/21/22 Unknown History mcg (2,000 unit) capsule lisinopril 10 mg tablet 10 mg PO DAILY 03/24/23 Unknown History cyclobenzaprine 5 mg tablet 5 mg PO TID PRN muscle spasm #10 01/12/24 01/16/24 R x tabs hydrocodone-acetaminophen 5-325mg 1 tab PO Q6H PRN PRN Pain 3 days 01/16/24 Unknown Rx 5mg-325mg #10 TABLETS Allergy/AdvReac Type Severity Reaction Status Date / Time doxycycline Allergy Unknown GI Upset Verified 01/16/24 19:28 erythromycin base Allergy Unknown GI Upset Verified 01/16/24 19:28 hydroxychloroquine (From Allergy Unknown Unknown Verified 01/16/24 19:28 Plaquenil) timolol Allergy Unknown unknown Verified 01/16/24 19:28 amoxicillin Allergy Nausea/Vom/ Verified 01/16/24 19:28 Diarrhea metformin Allergy Nausea/Vom/ Verified 01/16/24 19:28 Diarrhea Family History Mother Glaucoma Lymphoma Father Pancreatic cancer Brother Colon cancer Sister Heart disease Surgical History Hx of knee surgery Social History household members: none Smoking Status: Never smoker alcohol intake: never substance use type: does not use ROS ROS ED Constitutional Constitutional ED: Denies chills or fever(s) Eyes Eyes: Denies blurry vision or change in vision ENT ENT ED: Denies rhinorrhea or sore throat Cardiovascular Cardiovascular: Denies chest pain or palpitations Respiratory/Chest Respiratory/Chest: Denies cough or dyspnea Gastrointestinal Gastrointestinal: Reports nausea; Denies vomiting Genitourinary Genitourinary ED: Reports hematuria; Denies dysuria Musculoskeletal Musculoskeletal: Reports back pain; Denies neck pain Integumentary Denies abscess or rash Neurologic Neurologic: Denies headache(s) or weakness Allergic/Immunologic Allergic/Immunologic ED: Denies mouth swelling or urticaria EXAM Physical Exam Const Vital Signs: 01/16/24 19:28 Temperature 97.9 F Temperature Source Temporal Pulse Rate 77 Respiratory Rate 18 Blood Pressure 161/96 H Blood Pressure Mean 117 Pulse Ox 96 Positive well nourished and well developed General Appearance ED: well developed HEENT Reports moist mucous membranes Neck supple and no JVD GI soft to palpation, non-tender and non-distended Back/Spine Back/Spine Narrative: There is tenderness over the left lumbar paraspinal muscles. There is no bony crepitance or step-off noted. Range of motion was limited in all motions of the lumbar spine secondary to pain. Strength is 5/5 bilaterally in the lower extremities. There are no sensory deficits noted. Extremity normal to inspection Neuro oriented x3 and no sensory deficits noted Sensorium / Orientation: alert Motor Exam: strength 5/5 throughout Psych mental status grossly normal MDM MDM MDM Narrative Medical decision making narrative: Differential diagnosis includes pyelonephritis, lumbosacral strain, and urinary tract infection. Patient had a recent CT scan of her abdomen pelvis which was negative. There are some degenerative changes of the lumbar spine noted on the CT scan at that time. I do not feel repeat CT scan is necessary at this time. Urinalysis will be obtained to assess for urinary tract infection and hematuria. Lab Data Attestation: I reviewed the patient's lab results. Lab results narrative: Urinalysis was reviewed. Leukocyte esterase was 25. Occult blood was 250. There were greater than 100 red blood cells. There are 5-10 white blood cells. CBC was reviewed and was essentially within normal limits. Basic metabolic profile was reviewed and was essentially within normal limits. Labs: Laboratory Results - last 24 hr 01/16/24 01/16/24 20:05 20:55 WBC 6.5 RBC 4.62 Hgb 15.8 H Hct 45.9 MCV 99.4 H MCH 34.2 H MCHC 34.4 RDW Std Deviation 46.0 H RDW Coeff of Shea 12.6 Plt Count 153 MPV 12.9 H Immature Gran % (Auto) 0.200 Neut % (Auto) 75.4 H Lymph % (Auto) 18.7 L Teller % (Auto) 4.1 Eos % (Auto) 1.4 Baso % (Auto) 0.2 Absolute Neuts (auto) 4.9 Absolute Lymphs (auto) 1.22 Nucleated RBC % 0 Sodium 137 Potassium 4.7 Chloride 105 Carbon Dioxide 23.0 Anion Gap 9 BUN 19 H Creatinine 1.08 H Estim Creat Clear Calc 54.56 Est GFR (MDRD) Af Amer 66 Est GFR (MDRD) Non-Af 54 L BUN/Creatinine Ratio 17.6 Glucose 167 H Calcium 9.5 Urine Color [place]in[place] Urine Clarity Cloudy Urine pH 6.0 Ur Specific Scott 1.025 Urine Protein 30 H Urine Glucose (UA) Normal Urine Ketones 5 H Urine Occult Blood 250 H Urine Nitrite Negative Urine Bilirubin Negative Urine Urobilinogen Normal Ur Leukocyte Esterase 25 H Urine RBC > 100 SEEN Urine WBC 5-10 SEEN Ur Squamous Epith Cells 0 SEEN Urine Bacteria 2+ Urine Mucus 1+ Treatment and Re-Evaluation Narrative: Patient was given an injection of morphine here. Patient had no relief with this. Because of this, patient was given a dose of Toradol and Norflex. CBC will be obtained to assess for leukocytosis and anemia. Basic metabolic profile will be obtained to assess for electrolyte abnormality and renal function. CT scan report of the abdomen and pelvis. From 4 days ago was also reviewed again. There is no evidence of renal or ureteral calculus noted. There is no evidence of hydronephrosis noted. It is very unlikely that the patient would have developed a ureteral calculus that would be causing her symptoms in the last 4 days. Patient was feeling better on reevaluation. Patient states she still had some pain but it is much improved. Patient was given a prescription for a short course of Randolph. Patient was instructed to drink plenty of fluids. Patient was instructed to follow-up with her primary care physician in 5 to 7 days. Patient states she also was referred to urology and she is waiting to see the urologist. Patient was instructed to return if worse in any way. Patient understood and was agreeable with the plan. All questions were answered. Discharge Plan Triage Chief Complaint: Back ED Provider: Chuckie Park Dx/Rx/DC Orders Clinical Impression: Back pain, Flank pain Instructions: ED Back Pain (Acute or Chronic) Prescriptions: New hydrocodone-acetaminophen 5-325 mg tablet 1 tab PO Q6H PRN PRN (Reason: Pain) 3 Days Qty: 10 0RF No Action pilocarpine HCl 5 mg tablet 5 mg PO TID meloxicam 15 mg tablet 15 mg PO DAILY prednisolone acetate 1 % drops,suspension 1 drp ophthalmic (eye) 4X/DAY Patient Comments: USE 1 DROP IN THE RIGHT EYE FOUR TIMES DAILY. FOR USE AFTER SURGERY. tafluprost (PF) 0.0015 % dropperette 1 drp ophthalmic (eye) QPM cholecalciferol (vitamin D3) 50 mcg (2,000 unit) capsule 50 mcg PO DAILY cyanocobalamin (vitamin B-12) [Vitamin B-12] 1,000 mcg tablet 1,000 mcg PO DAILY Patient Comments: TAKE 1 TABLET BY MOUTH EVERY DAY folic acid 1 mg tablet 1 mg PO DAILY Patient Comments: TAKE 1 TABLET BY MOUTH EVERY DAY aspirin 81 mg Tablet 81 mg PO DAILY methotrexate sodium 2.5 mg tablet 12.5 mg PO TU Patient Comments: TAKE 5 TABLETS BY MOUTH ONE TIME A WEEK. minocycline 50 mg capsule 50 mg PO BID lisinopril 10 mg tablet 10 mg PO DAILY Patient Comments: TAKE 1 TABLET BY MOUTH EVERY DAY cyclobenzaprine 5 mg tablet 5 mg PO TID PRN (Reason: muscle spasm) Qty: 10 0RF Primary Care Provider: Bo Gilmore Referrals: Bo Gilmore MD [Primary Care Provider] - 3-5 Days Marilyn Gifford MD [Med Staff - Active Staff] - 3-5 Days Print Language: Spanish Disposition Disposition: Home, Self Care
[2024-01-16] MEDS: Morphine 4 MG/ML Syringe IM (20:02)
[2024-01-16 20:24] LABS: Squamous Epithelial Cells - UA 0 SEEN /hpf (5-10)
[2024-01-16 20:26] LABS: Color, Urine Amber (Yellow); Glucose, Dipstick Normal (Normal); Ketone-Dipstick 5 mg/dl (Negative); Leukocyte Esterase-Dipstick 25 /ul (Negative); Nitrite-Dipstick Negative (Negative); Occult Blood-Urine 250 /ul (Negative); Protein-Dipstick 30 mg/dl (Negative); Specific Gravity, Urine 1.025 (1.002-1.030); Urine Bilirubin Dipstick Negative (Negative); Urine Clarity Cloudy (Clear); Urine Urobilinogen Normal (Normal)
[2024-01-16 20:35] LABS: Bacteria 2+ /hpf (None Seen); Red Blood Cells-Urine > 100 SEEN /hpf (0-5); White Blood Cells 5-10 SEEN /hpf (0-5)
[2024-01-16 20:36] LABS: Mucous, Urine 1+ /hpf (<or=2+)
[2024-01-16] MEDS: Orphenadrine 60 MG/2 ML Ampul IM (21:01)
[2024-01-16] MEDS: Ketorolac 30 MG/ML Syringe IV (21:01)
[2024-01-16 21:11] LABS: Absolute Lymphocyte Count 1.22 X10^3/uL (0.83-4.51); Absolute Neutrophil Count 4.9 X10^3/uL (2.0-7.7); Basophil# 0.01 X10^3/uL; Basophil% 0.2 % (0-1); Eosinophil# 0.09 X10^3/uL; Eosinophils% 1.4 % (0-5); Hematocrit 45.9 % (37-47); Hemoglobin 15.8 g/dL (12.0-15.0); Lymphocyte # 1.22 X10^3/ul (0.83-4.51); Lymphocyte % 18.7 % (19-41); Mean Corp Hgb Conc 34.4 g/dL (32-36); Mean Corpuscular Hgb 34.2 pg (27.0-32.0); Mean Corpuscular Volume 99.4 fL (81-99); Mean Platelet Vol. 12.9 fl (6.2-12.0); Monocyte# 0.27 X10^3/uL; Monocyte% 4.1 % (0-10); NRBC Flagged by Analyzer 0 % (0-5); Neutrophil # 4.91 X10^3/uL (2.7-7.7); Neutrophil % 75.4 % (47-70); Platelet Count 153 K/mm3 (150-450); RBC Distribution Width CV 12.6 % (11.6-14.6); Red Blood Count 4.62 M/mm3 (4.2-5.4); White Blood Count 6.5 K/mm3 (4.4-11.0)
[2024-01-16 21:27] LABS: Anion Gap 9 (5-15); BUN 19 mg/dL (7-18); BUN/Creat Ratio 17.6 RATIO (10-20); Calcium,Total 9.5 mg/dL (8.5-10.1); Chloride 105 mmol/L (98-107); Creatinine, Serum 1.08 mg/dL (0.55-1.02); EST Glomerular Filtration Rate 54 mL/min (>60); Est Glom Filt Rate - Afr Amer 66 mL/min (>60); Estimated Creatinine Clearance 54.56 ml/min; Glucose 167 mg/dL (74-106); Potassium 4.7 mmol/L (3.5-5.1); Sodium Level 137 mmol/L (136-145)
[2024-01-16] MEDS: HYDROcodone Bitartrate/Apap 5/325 Tablet PO (22:21)
--- NOTE | 2024-01-16 22:43 | ED.RN ---
Pt given Bruin for D/C, family states pt is too painful to leave and would like to be admitted. RN explained that she is up for D/C and that pain medication would be given, and a prescription has been written. Pt still refusing to leave department. Dr. Park made aware, no new orders at this time.
[2024-01-16 23:27] VITALS: BP 157/98; PULSE 78; RESP 95; O2SAT 95
[2024-01-16 23:34] VITALS: BP 157/98; PULSE 79; RESP 18; TEMP 36.8; O2SAT 9
== END 2024-01-16 23:49 | disposition home or self-care (01) ==
PROVIDERS: Emergency Provider Emergency Medicine; PCP Family Medicine; Visit Provider Emergency Medicine
DX: M54.50 Low back pain, unspecified (principal); E11.9 Type 2 diabetes mellitus without complications; R10.9 Unspecified abdominal pain; I10 Essential (primary) hypertension; Z79.82 Long term (current) use of aspirin; Z79.899 Other long term (current) drug therapy
CPT/HCPCS: 80048; 81001; 85025; 96372; 96374; 96376; 99283; A4216

== ENCOUNTER → 2024-01-26 | Outpatient (CLI) | payer MEDICAID, SELFPAY ==
--- NOTE | 2024-01-26 | CYSPIN_PTH ---
PATIENT: SON BUSCH LOC: [facility] U#:[id number] AGE/SX: 63/F ROOM: RE01/26/[address]: Dr. Marilyn Gifford MD : [id number] BED: DIS: 01/26/2024 SPEC #: [id number] RECD: 01/26/24 16:30 STATUS: EUGENIA ARELLANO #: [id number] ROBERT: 01/26/24 00:[address]: Marilyn Gifford DEPT: CYTOLOGY RECD BY: Elisa Combs ENTERED: 01/27/24 09:24 SP TYPE: CYSPIN FL OTHR DR: Bo Gilmore MD Tissues: Urine Procedures: Pap Stain (control) Special Stain Group II Cytospin Fluid HEADER OPERATION: Not noted PRE-OP DIAGNOSIS: Gross hematuria TISSUE SUBMITTED: Urine for cytology DIAGNOSIS CYTOLOGY Urine for cytology (cytospin): Negative for high grade urothelial carcinoma, [place] Category System II. See comment. AM 01/28/2024 COMMENT The [place] System for urine cytology diagnostic categorization was used in the evaluation of this case. CYTOLOGY STUDY Slides are reviewed. CYTOLOGY GROSS Received is 30 ml of yellow-cloudy fluid labeled with the patient's name and and designated per the requisition as urine. Submitted for cytology preparation. Mr 01/27/2024 TC:5 CPT: 01984
[2024-01-26 17:40] LABS: Cytology, Body Fluid / CSF SEE PATHOLOGY REPORT
== END | disposition home or self-care (01) ==
PROVIDERS: PCP Family Medicine; Referring Provider Urology; Visit Provider Urology
DX: R31.0 Gross hematuria (principal)
CPT/HCPCS: 88108; 88313

== ENCOUNTER → 2024-01-31 | Outpatient (CLI) | payer MEDICAID, SELFPAY ==
[2024-01-31 11:41] LABS: SERUM TEARS COLLECTION SPECIMEN PROCESSED
== END | disposition home or self-care (01) ==
PROVIDERS: PCP Family Medicine; Referring Provider Ophthalmology; Visit Provider Ophthalmology
DX: H04.123 Dry eye syndrome of bilateral lacrimal glands (principal)
CPT/HCPCS: 36415

== ENCOUNTER 2024-03-02 05:53 | Day surgery (SDC) | payer MEDICAID, SELFPAY ==
--- NOTE | 2024-02-29 12:25 | EKG12_ITS ---
Test Reason : PREOP Blood Pressure : */* mmHG Vent. Rate : 89 BPM Atrial Rate : 89 BPM P-R Int : 124 ms QRS Dur : 74 ms QT Int : 364 ms P-R-T Axes : 29 5 19 degrees QTcB Int : 442 ms Normal sinus rhythm Abnormal ECG Reconfirmed by ANJELICA TINSLEY, ELAINE ([id number]), supervising film or videotape editor ASTON RATLIFF ([id number]) on 03/01/2024 8:45:49 AM Referred By: Marilyn Gifford Confirmed By: ELAINE DEJESUS MD
[2024-03-02] VITALS (9 sets, daily range): BP systolic 126–147; BP diastolic 79–97; PULSE 66–95; RESP 16; TEMP 36.3–36.6; O2SAT 93–99; BMI 32.8
[2024-03-02] MEDS: Lactated Ringers 1,000 ML 15 ML IV (06:00)
[2024-03-02 06:39] LABS: Bedside Glucose 125 mg/dL (74-106)
--- NOTE | 2024-03-02 06:45 | PRE.ANES_ITS ---
ASA Classification* ASA Classification ASA Classification: 2 Assessment & Plan Anesthesia* Anesthesia Assessment Anesthesia Assessment: Discussed sedation and/or anesthesia options, risks, benefits, and alternatives with patient/parents/legal guardian/POA. Questions invited. The patient/parents/legal guardian/POA seems to understand and agrees to proceed with anesthesia plan. Reviewed the physical assessment, medical history, allergy history and patient home medications list prior to surgery/procedure/anesthetic and documented any changes. Performed airway and anesthesia risk assessments. Anesthesia Type Anesthesia Type: General Anesthesia Focused Assessment* Temperature: 97.4 F Pulse Rate: 83 Blood Pressure: 147/86 Respiratory Rate: 16 Pulse Ox: 98 Airway Assessment Mouth opens: >3 cm Mallampati Score: II Focused Labs Anesthesia Preop lab: CBC WBC 6.5 K/mm3 (4.4-11.0) 01/16/24 20:55 RBC 4.62 M/mm3 (4.2-5.4) 01/16/24 20:55 Hgb 15.8 g/dL (12.0-15.0) H 01/16/24 20:55 Hct 45.9 % (37-47) 01/16/24 20:55 Plt Count 153 K/mm3 (150-450) 01/16/24 20:55 CHEMISTRY Potassium 4.7 mmol/L (3.5-5.1) 01/16/24 20:55 Sodium 137 mmol/L (136-145) 01/16/24 20:55 BUN 19 mg/dL (7-18) H 01/16/24 20:55 Creatinine 1.08 mg/dL (0.55-1.02) H 01/16/24 20:55 Glucose 167 mg/dL (74-106) H 01/16/24 20:55 POC Glucose 125 mg/dL (74-106) H 03/02/24 06:11 TSH 2.63 uIU/mL (0.358-3.74) 10/08/22 11:37 COAG Pre-Assessment Diagnosis/Proposed Procedure Planned Operative Procedure(s): Cysto, transurethral resection of bladder tumor Anesthesia History Anesthesia History - pharmacy technician infusion: Anesthesia History - pharmacy technician infusion Hx Hospitalization No 02/24/24 14:42 Any Problems With Anesthesia No 02/24/24 14:42 Cholinesterase deficiency No 02/24/24 14:42 You/Your Family Experience No 02/24/24 14:42 fever (hyperthermia) with Relationship Recent Exposure to Contagious No 03/02/24 06:21 Disease Does patient have nerve No 02/24/24 14:42 stimulator Patient instructed to have device shut off --Does patient have Pacemaker No 03/02/24 06:21 or ICD? When Was Last Pacemaker Check QUESTION #4 FULL TEXT: You/Your Family Experience fever (hyperthermia) with Anesthesia Last Oral Intake Last Oral intake: Last Oral Intake NPO since 00:00 03/02/24 06:21 Meds taken in AM with sips of No 03/02/24 06:21 water? Meds patient instructed to take am of surgery PONV PONV - pharmacy technician infusion: PONV - pharmacy technician infusion Female Yes 02/24/24 14:42 HX of Motion Sickness No 02/24/24 14:42 HX of N/V After Surgery No 02/24/24 14:42 Non-Smoker Yes 02/24/24 14:42 Duration of Surgery greater Yes 02/24/24 14:42 than 60 minutes Number of Risk Factors 3 02/24/24 14:42 PONV Score Moderate Risk 02/24/24 14:42 Height & Weight Height & Weight: Anesthesia: Height & Weight Height 5 ft 3 in 03/02/24 06:21 Weight: 84 kg 03/02/24 06:21 Body Mass Index (BMI) 32.8 03/02/24 06:21 Respiratory Assessment Respiratory Assessment - pharmacy technician infusion: Respiratory Tract Infection Hx - pharmacy technician infusion Hx Respiratory Tract Infection No 02/24/24 14:42 STOP Sleep Apnea STOP Sleep Apnea - pharmacy technician infusion: STOP Sleep Apnea - pharmacy technician infusion Hx Hypertension Yes: CONTROLLED WITH MED 02/24/24 14:42 Hx Sleep Apnea No 02/24/24 14:42 CPAP BIPAP Do you snore loudly (louder No 02/24/24 14:42 than talking or can be heard Do you often feel tired/ No 02/24/24 14:42 fatigued/ sleepy during daytime? Has anyone observed you stop No 02/24/24 14:42 breathing during sleep? STOP Results Negative 02/24/24 14:42 QUESTION #5 FULL TEXT : Do you snore loudly (louder than talking or can be heard through closed doors)? 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 Specify any problems Hx of Preganancy in last 3 N/A 02/24/24 14:42 Months Nurse Filling Out Transfusion NBUCHER 02/24/24 14:42 & Questions: Date: 02/24/24 02/24/24 14:42 Time: 14:44 02/24/24 14:42 Patient unable to answer at this time (ie. confused, unrespo /Reproduction History /Reproductive History - pharmacy technician infusion: /Reproductive Hx- pharmacy technician infusion Hx Now Gestational Age (in weeks): EDC: Hx Hx Para Hx Section SAB Active Medications Active Medications: Current Medications Generic Name Dose Route Start Last Admin Trade Name Freq PRN Reason Stop Dose Admin Cefazolin Sodium 2 gm/ N/A 20 mls @ 400 mls/hr 03/02/24 07:30 IV 03/02/24 07:32 PREOP ONE Lactated Ringer's 1,000 mls @ 15 mls/hr 03/02/24 06:00 03/02/24 06:00 IV 03/05/24 00:39 15 mls/hr .Q48H FAUSTINA Administration Protocol PFS Medical History Wears glasses Wears contact lenses Cancer Bladder disease Fatty liver Dietary restriction Diabetes Non-smoker Hypertension History of edema History of echocardiogram History of stress test Cardiology follow-up encounter Bilateral inguinal hernia Essential hypertension Melanoma Meibomian gland dysfunction (MGD) Hemochromatosis Hx of gastroesophageal reflux (GERD) GERD (gastroesophageal reflux disease) History of diabetes mellitus History of atrial fibrillation Diabetes Sjogren's disease Glaucoma Home Medications ?Medication ?Instructions ?Recorded ?Last Taken ?Type aspirin 81 mg tablet 81 mg PO DAILY 10/09/22 02/23/24 History cyanocobalamin (vitamin B-12) 1,000 mcg PO DAILY 10/09/22 03/01/24 History 1,000 mcg tablet (Vitamin B-12) folic acid 1 mg tablet 1 mg PO DAILY 10/09/22 03/01/24 History meloxicam 15 mg tablet 15 mg PO DAILY PRN pain 10/12/22 Unknown History methotrexate sodium 2.5 mg tablet 12.5 mg PO TU 10/12/22 02/27/24 History minocycline 50 mg capsule 50 mg PO DAILY 10/12/22 03/01/24 History pilocarpine HCl 5 mg tablet 5 mg PO TID PRN SJOGRENS 10/12/22 03/01/24 History cholecalciferol (vitamin D3) 50 50 mcg PO DAILY 10/21/22 03/01/24 History mcg (2,000 unit) capsule lisinopril 10 mg tablet 10 mg PO DAILY 03/24/23 03/01/24 History cyclobenzaprine 5 mg tablet 5 mg PO TID PRN muscle spasm #10 01/12/24 01/16/24 Rx tabs Allergy/AdvReac Type Severity Reaction Status Date / Time doxycycline Allergy Unknown GI Upset Verified 03/02/24 06:18 erythromycin base Allergy Unknown GI Upset Verified 03/02/24 06:18 hydroxychloroquine (From Allergy Unknown Unknown Verified 03/02/24 06:18 Plaquenil) timolol Allergy Unknown unknown Verified 03/02/24 06:18 amoxicillin Allergy Nausea/Vom/ Verified 03/02/24 06:18 Diarrhea metformin Allergy Nausea/Vom/ Verified 03/02/24 06:18 Diarrhea Family History Mother Glaucoma Lymphoma Father Pancreatic cancer Brother Colon cancer Sister Heart disease Surgical History History of tubal ligation (~1988) History of cataract extraction with lens replacement History of eye surgery Hx of knee surgery (~1969) Social History household members: none Smoking Status: Never smoker alcohol intake: never substance use type: does not use Review of Systems (Anesthesia) ROS Narrative System reviewed and no additional complaints, except as documented.
--- NOTE | 2024-03-02 07:30 | BLB_PTH ---
PATIENT: SON BUSCH LOC: [facility] [place][id number] AGE/SX: 64/F ROOM: RE03/02/[address]: Dr. Marilyn Gifford MD : 1960 BED: DIS: 03/02/2024 SPEC #: [id number] RECD: 03/02/24 11:18 STATUS: EUGENIA ARELLANO #: [id number] ROBERT: 03/02/24 07:[address]: Marilyn Gifford DEPT: SURGICAL PATHOLOGY RECD BY: Elisa Combs ENTERED: 03/02/24 11:45 SP TYPE: TURB OTHR DR: Bo Gilmore MD Tissues: Urinary bladder, NOS Procedures: Surgery Specimen Level V HEADER OPERATION: Transurethral resection of bladder tumor PRE-OP DIAGNOSIS: Bladder tumor, gross hematuria, bacteriuria, frequency of urination TISSUE SUBMITTED: Bladder tumor MICROSCOPIC DIAGNOSIS Bladder tumor, transurethral resection: Mild chronic inflammation. Negative for malignancy. See comment. 03/03/2024 COMMENT The specimen consists of minute fragments of urothelial mucosa. Most of the epithelium is denuded. Detrusor muscle is not present in the specimen. Correlation with clinical, endoscopic findings and appropriate follow up are necessary. MICROSCOPIC DESCRIPTION Slides are reviewed. GROSS DESCRIPTION Received in fixative is one container labeled with the patient's name and designated Bladder tumor. The specimen consists of two minute fragments of aranda soft tissue that in aggregate measure 0.2 x 0.1 x 0.1 cm. The specimen is totally submitted in one cassette. 03/02/2024 TC:3 CPT:10736
[2024-03-02] MEDS: Cefazolin 2 GM in Syringe IV (07:37)
--- NOTE | 2024-03-02 07:41 | EX.PCM.DISCH ---
Discharge Instructions Diet Discharge Diet: No restrictions Activity Discharge Activity: Return to Normal Activity May resume sexual activity in: 2 weeks Lifting Restrictions: no heavy lifting for 2 weeks, over 20 pounds Dressing / Incision Call your doctor if your incision/area has: - (call if urine looks like tomato juice, passing clots in the urine) Call your doctor if you observe: Fever of 101 or Higher, Inability to urinate and Inability to have a bowel movement Follow Up Care Please Follow Up With: Marilyn Gifford MD When: 1 week, the office will call to make arrangements Test Results: Test results from this visit will be discussed in further detail at your follow-up appointment, if applicable. Discharge Plan Admission Attending Provider: Marilyn Gifford Primary Care Provider: Bo Gilmore Instructions Print Language: [place] Leone[place] Discharge Orders/Prescriptions Prescriptions: New oxycodone-acetaminophen [Percocet] 5-325 mg tablet 1 tab PO Q8H PRN (Reason: pain) 3 Days Qty: 10 0RF cephalexin 500 mg capsule 500 mg PO Q12 3 Days Qty: 6 0RF phenazopyridine [Pyridium] 200 mg tablet 200 mg PO TID PRN PRN (Reason: Bladder Spasms) 7 Days Qty: 30 0RF phenazopyridine 100 mg tablet 100 mg PO TID Qty: 30 2RF Continued pilocarpine HCl 5 mg tablet 5 mg PO TID PRN (Reason: SJOGRENS) meloxicam 15 mg tablet 15 mg PO DAILY PRN (Reason: pain) cholecalciferol (vitamin D3) 50 mcg (2,000 unit) capsule 50 mcg PO DAILY cyanocobalamin (vitamin B-12) [Vitamin B-12] 1,000 mcg tablet 1,000 mcg PO DAILY Patient Comments: TAKE 1 TABLET BY MOUTH EVERY DAY folic acid 1 mg tablet 1 mg PO DAILY Patient Comments: TAKE 1 TABLET BY MOUTH EVERY DAY aspirin 81 mg Tablet 81 mg PO DAILY methotrexate sodium 2.5 mg tablet 12.5 mg PO TU Patient Comments: TAKE 5 TABLETS BY MOUTH ONE TIME A WEEK. minocycline 50 mg capsule 50 mg PO DAILY lisinopril 10 mg tablet 10 mg PO DAILY Patient Comments: TAKE 1 TABLET BY MOUTH EVERY DAY cyclobenzaprine 5 mg tablet 5 mg PO TID PRN (Reason: muscle spasm) Qty: 10 0RF Referrals / Follow Up: Bo Gilmore MD [Primary Care Provider] - Disposition Disposition (needs filled in before D/C Order can be placed): Home, Self Care
--- NOTE | 2024-03-02 08:28 | PCM.OPRPT ---
Operative Report (Standard) Operative Information Surgery/Procedure Performed: Cystoscopy, transurethral resection of bladder tumor small Surgeon: Marilyn Gifford Date of Procedure: 03/02/24 Procedure Start Time: 07:50 Procedure Stop Time: 08:07 Pre-Operative Diagnosis: Bladder tumor Post-Operative Diagnosis: Same Select all DRAINS/GRAFTS/IMPLANTS that apply: None Type of Anesthesia: General Estimated Blood Loss: <5cc Specimen collected: Yes Description of specimen(s) removed: Biopsy bladder base, bladder tumor fragments Description of surgery: The patient is a 64-year-old female who presented to the office for evaluation of hematuria and was found to have a small bladder tumor approximately 1 cm in size papillary in nature and on the right lateral wall of the bladder approximately 1.5 cm away from the ureteral orifice. After informed consent, she decided to proceed with surgical removal. She was taken to the operating room and placed on the operating room table. Anesthesia monitored the head, neck, airway, IV access and vital signs throughout the case. Once anesthesia was appropriate ministered, she was placed into dorsolithotomy position and was prepped and draped in usual sterile fashion. The resectoscope was inserted through the urethra under direct visualization. Cystoscopy revealed no evidence of other tumor present. Using a 24 Kinyarwanda loop, the tumor was removed in approximately 3 sections. A biopsy was performed of the base of the tumor. Cautery was performed for hemostatic control and tissue treatment. On irrigation of the bladder to remove the tumor fragments, the small tumor fragments were mostly unable to be identified. The fragments that were located were sent for evaluation. The biopsy of the bladder base was sent for evaluation with pathology. After cauterization with hemostasis, the bladder was emptied and the resectoscope was removed. She was awakened and taken to the recovery room in good condition. There were no complications during the procedure. Surgical Findings: Small bladder tumor right lateral bladder wall 1.5 cm away from the right ureteral orifice. Film Loader blanket folder: No Complications Complications: No Admit VTE Documentation VTE Present on Admission: Yes VTE Mechan Device Prophylaxis: SCD's VTE Pharm Prophylaxis ordered?: No Reason prophylaxis not ordered: Treatment Not Indicated
--- NOTE | 2024-03-02 08:59 | PCM.POST.ANE ---
Anesthesia: Postop Eval I Current Vital Signs Temperature: 97.9 F Pulse Rate: 93 Blood Pressure: 139/85 Respiratory Rate: 16 Pulse Ox: 94 Oxygen Delivery Method: Room Air Assessment Airway patent: Yes Spontaneous unlabored respirations: Yes Mental status: Awake and Calm nausea: No Vomiting: No Anesthesia Complication: No Fluid Hydration Crystalloid volume administer (ml): 800 Total IV fluid infused: 800 Progress Note Anesthesia document: Postop Eval 1 completed: Yes
--- NOTE | 2024-03-02 09:01 | POSTOPAN2_ITS ---
Anesthesia Postop Eval I Sum Postop Eval Completion status Anesthesia document: Postop Eval 1 completed: Yes Anesthesia Postop Eval I Summary Anesthesia Postop Eval I Summary: Anesthesia Postop Eval I: Assessment Summary Airway patent Yes 03/02/24 09:00 ARTS EDUCATION [email or web address] Spontaneous unlabored Yes 03/02/24 09:00 ARTS EDUCATION [email or web address].LETY respirations Mental status Awake,Calm 03/02/24 09:00 ARTS EDUCATION TEACHER.OT nausea No 03/02/24 09:00 ARTS EDUCATION TEACHER.OT Vomiting No 03/02/24 09:00 ARTS EDUCATION [email or web address] Anesthesia Postop Eval I: Fluid Summary Crystalloid volume administer 800 03/02/24 09:00 ARTS EDUCATION TEACHER.MDOT (ml) Colloids volume administered ( ml) Blood Product volume administered (ml) Total IV fluid infused 800 03/02/24 09:00 ARTS EDUCATION [email or web address].LETY Anesthesia Postop Eval I: Summary Notes Anesthesia Complication No 03/02/24 09:00 ARTS EDUCATION [email or web address] Anesthesia Complication Comment: Post-operative progress note Anesthesia: Postop Eval II Evaluation Mental status: Awake Pain Level: 0 nausea: No Vomiting: No
--- NOTE | 2024-03-02 09:01 | PCM.POSTANE2 ---
Anesthesia Postop Eval I Sum Postop Eval Completion status Anesthesia document: Postop Eval 1 completed: Yes Anesthesia Postop Eval I Summary Anesthesia Postop Eval I Summary: Anesthesia Postop Eval I: Assessment Summary Airway patent Yes 03/02/24 09:00 [email or web address] Spontaneous unlabored Yes 03/02/24 09:00 [email or web address] respirations Mental status Awake,Calm 03/02/24 09:00 SLED [email or web address].OT nausea No 03/02/24 09:00 SLED MAKER.OT Vomiting No 03/02/24 09:00 [email or web address] Anesthesia Postop Eval I: Fluid Summary Crystalloid volume administer 800 03/02/24 09:00 SLED MAKER.MDOT (ml) Colloids volume administered ( ml) Blood Product volume administered (ml) Total IV fluid infused 800 03/02/24 09:00 [email or web address] Anesthesia Postop Eval I: Summary Notes Anesthesia Complication No 03/02/24 09:00 [email or web address] Anesthesia Complication Comment: Post-operative progress note Anesthesia: Postop Eval II Evaluation Mental status: Awake Pain Level: 0 nausea: No Vomiting: No
== END 2024-03-02 09:46 | disposition home or self-care (01) ==
LOC: SDC 05:55 → AC 05:56
PROVIDERS: PCP Family Medicine; Referring Provider Urology; Visit Provider Urology
PROC: 0TBB8ZZ Excision of Bladder, Via Natural or Artificial Opening Endoscopic (ICD-10-PCS; CPT 52234; principal; 2024-03-02 07:20)
DX: D49.4 Neoplasm of unspecified behavior of bladder (principal); E11.9 Type 2 diabetes mellitus without complications; I10 Essential (primary) hypertension; Z79.82 Long term (current) use of aspirin; Z79.899 Other long term (current) drug therapy
CPT/HCPCS: 52234; 00912; 82962; 88307; 93005; J7120; J2405

== ENCOUNTER → 2024-04-03 | Outpatient (CLI) | payer SELFPAY ==
[2024-04-03 12:22] LABS: SERUM TEARS COLLECTION SPECIMEN PROCESSED
== END | disposition home or self-care (01) ==
PROVIDERS: PCP Family Medicine; Referring Provider Ophthalmology; Visit Provider Ophthalmology
DX: H04.123 Dry eye syndrome of bilateral lacrimal glands (principal)

== ENCOUNTER 2024-05-03 06:43 | Day surgery (SDC) | payer MEDICAID, SELFPAY ==
--- NOTE | 2024-05-01 14:28 | PAT.ANESEVAL ---
Pre-Assessment Diagnosis/Proposed Procedure Planned Operative Procedure(s): CSCOPE Anesthesia History Anesthesia History - director of maternity services: Anesthesia History - director of maternity services Hx Hospitalization No 05/01/24 14:12 Any Problems With Anesthesia No 05/01/24 14:12 Cholinesterase deficiency No 05/01/24 14:12 You/Your Family Experience No 05/01/24 14:12 fever (hyperthermia) with Relationship Recent Exposure to Contagious No 03/02/24 06:21 Disease Does patient have nerve No 05/01/24 14:12 stimulator Patient instructed to have device shut off --Does patient have Pacemaker or ICD? When Was Last Pacemaker Check QUESTION #4 FULL TEXT: You/Your Family Experience fever (hyperthermia) with Anesthesia Last Oral Intake Last Oral intake: Last Oral Intake NPO since Meds taken in AM with sips of water? Meds patient instructed to take am of surgery PONV PONV - director of maternity services: PONV - director of maternity services Female Yes 05/01/24 14:12 HX of Motion Sickness No 05/01/24 14:12 HX of N/V After Surgery No 05/01/24 14:12 Non-Smoker Yes 05/01/24 14:12 Duration of Surgery greater No 05/01/24 14:12 than 60 minutes Number of Risk Factors 2 05/01/24 14:12 PONV Score Moderate Risk 05/01/24 14:12 Height & Weight Height & Weight: Anesthesia: Height & Weight Height 5 ft 3.25 in 03/15/24 09:45 Respiratory Assessment Respiratory Assessment - director of maternity services: Respiratory Tract Infection Hx - director of maternity services Hx Respiratory Tract Infection No 05/01/24 14:12 STOP Sleep Apnea STOP Sleep Apnea - director of maternity services: STOP Sleep Apnea - director of maternity services Hx Hypertension Yes: CONTROLLED WITH MED 05/01/24 14:12 Hx Sleep Apnea No 05/01/24 14:12 CPAP BIPAP Do you snore loudly (louder No 05/01/24 14:12 than talking or can be heard Do you often feel tired/ No 05/01/24 14:12 fatigued/ sleepy during daytime? Has anyone observed you stop No 05/01/24 14:12 breathing during sleep? STOP Results Negative 05/01/24 14:12 QUESTION #5 FULL TEXT : Do you snore loudly (louder than talking or can be heard through closed doors)? 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 Specify any problems Hx of Preganancy in last 3 N/A 05/01/24 14:12 Months Nurse Filling Out Transfusion NBUCHER 05/01/24 14:12 & Questions: Date: 05/01/24 05/01/24 14:12 Time: 14:13 05/01/24 14:12 Patient unable to answer at this time (ie. confused, unrespo /Reproduction History /Reproductive History - director of maternity services: /Reproductive Hx- director of maternity services Hx Now No 05/01/24 14:12 Gestational Age (in weeks): EDC: Hx Hx Para Hx Section SAB No 05/01/24 14:12 [facility] Medical History (Updated 05/01/24 @ 14:15 by Amanda Rodrigez) Family history of malignant neoplasm of colon in first degree relative diagnosed when younger than 60 years of age Bladder tumor Wears glasses Wears contact lenses Cancer Bladder disease Fatty liver Dietary restriction Diabetes Non-smoker Hypertension History of edema History of echocardiogram History of stress test Cardiology follow-up encounter Bilateral inguinal hernia Essential hypertension Melanoma Meibomian gland dysfunction (MGD) Hemochromatosis Hx of gastroesophageal reflux (GERD) GERD (gastroesophageal reflux disease) History of diabetes mellitus History of atrial fibrillation Sjogren's disease Glaucoma Home Medications ?Medication ?Instructions ?Recorded ?Last Taken ?Type aspirin 81 mg tablet 81 mg PO DAILY 10/09/22 02/23/24 History cyanocobalamin (vitamin B-12) 1,000 mcg PO DAILY 10/09/22 03/01/24 History 1,000 mcg tablet (Vitamin B-12) folic acid 1 mg tablet 1 mg PO DAILY 10/09/22 03/01/24 History meloxicam 15 mg tablet 15 mg PO DAILY PRN pain 10/12/22 Unknown History methotrexate sodium 2.5 mg tablet 12.5 mg PO TU 10/12/22 02/27/24 History minocycline 50 mg capsule 50 mg PO DAILY 10/12/22 03/01/24 History pilocarpine HCl 5 mg tablet 5 mg PO TID PRN SJOGRENS 10/12/22 03/01/24 History cholecalciferol (vitamin D3) 50 50 mcg PO DAILY 10/21/22 03/01/24 History mcg (2,000 unit) capsule lisinopril 10 mg tablet 10 mg PO DAILY 03/24/23 03/01/24 History acetaminophen 650 mg 650 mg PO Q8H PRN pain 03/15/24 Unknown History tablet,extended release (Tylenol Arthritis Pain) alprazolam 0.25 mg tablet (Xanax) 0.25 mg PO BID PRN anxiety 03/15/24 Unknown History tramadol 50 mg tablet 50 mg PO BID PRN pain 03/15/24 Unknown History calcium 333 mg-vit D3 133 1 tab PO DAILY 05/01/24 Unknown History unit-magnesium 133 mg-zinc 5 mg tablet (Terrell Mag Zinc Plus D3) Allergy/AdvReac Type Severity Reaction Status Date / Time doxycycline Allergy Unknown GI Upset Verified 05/01/24 14:10 erythromycin base Allergy Unknown GI Upset Verified 05/01/24 14:10 hydroxychloroquine (From Allergy Unknown Nausea/Vom/ Verified 05/01/24 14:10 Plaquenil) Diarrhea timolol Allergy Unknown Parasthesia Verified 05/01/24 14:10 of face amoxicillin Allergy Nausea/Vom/ Verified 05/01/24 14:10 Diarrhea metformin Allergy Nausea/Vom/ Verified 05/01/24 14:10 Diarrhea Family History (Updated 03/15/24 @ 09:32 by Dona Oropeza) Mother Glaucoma Lymphoma Father Pancreatic cancer Brother Colon cancer In his 50's Sister Heart disease Surgical History Status post surgical removal and fulguration of bladder neoplasm Hx of colonoscopy History of tubal ligation (~1988) History of cataract extraction with lens replacement History of eye surgery Hx of knee surgery (~1969) Social History (Updated 03/15/24 @ 09:33 by Dona Oropeza) household members: none current occupational status: retired Smoking Status: Never smoker alcohol intake: never substance use type: does not use Audit: Pertinent Findings Pertinent Findings EKG Perinent findings: 02/29/2024 normal sinus rhythm 89 bpm Echo (EF%) pertinent findings: 10/10/2022 ejection fraction 60% mild LVH Consult pertinent findings: Cardiology 01/04/2024 hypertension history of atrial fibrillation stable continue with aspirin Pulmonary function results/spirometer pertinent findings: Chest x-ray 10/09/2022 no evidence of disease Recommendation Anesthesia Recommendation Anesthesia recommendation: OPTIMIZED for anesthesia
[2024-05-03] VITALS (9 sets, daily range): BP systolic 106–130; BP diastolic 71–96; PULSE 75–93; RESP 16–18; TEMP 36.2–37.4; O2SAT 93–96; BMI 33.2
--- NOTE | 2024-05-03 07:18 | H&P.OPEN ---
[facility] - General General Date of Service: 05/03/24 HPI Narrative SON BUSCH, is a 64 F who presents for screening colonoscopy. Patient last colonoscopy was by Dr. Dumont negative per patient. Patient's brother was diagnosed with colon cancer in his 50s. Patient denies any chronic abdominal pain/nausea/vomiting/reflux. Patient has bowel movements daily denies any blood. [facility] Medical History (Updated 05/03/24 @ 07:[address] Aliza Dietz MD) Family history of malignant neoplasm of colon in first degree relative diagnosed when younger than 60 years of age Bladder tumor Wears glasses Wears contact lenses Cancer Bladder disease Fatty liver Dietary restriction Diabetes Non-smoker Hypertension History of edema History of echocardiogram History of stress test Cardiology follow-up encounter Bilateral inguinal hernia Essential hypertension Melanoma Meibomian gland dysfunction (MGD) Hemochromatosis Hx of gastroesophageal reflux (GERD) GERD (gastroesophageal reflux disease) History of diabetes mellitus History of atrial fibrillation Sjogren's disease Glaucoma Home Medications ?Medication ?Instructions ?Recorded ?Last Taken ?Type aspirin 81 mg tablet 81 mg PO DAILY 10/09/22 05/02/24 07:00 History cyanocobalamin (vitamin B-12) 1,000 mcg PO DAILY 10/09/22 03/01/24 History 1,000 mcg tablet (Vitamin B-12) folic acid 1 mg tablet 1 mg PO DAILY 10/09/22 03/01/24 History meloxicam 15 mg tablet 15 mg PO DAILY PRN pain 10/12/22 Unknown History methotrexate sodium 2.5 mg tablet 12.5 mg PO TU 10/12/22 02/27/24 History minocycline 50 mg capsule 50 mg PO DAILY 10/12/22 03/01/24 History pilocarpine HCl 5 mg tablet 5 mg PO TID PRN SJOGRENS 10/12/22 03/01/24 History cholecalciferol (vitamin D3) 50 50 mcg PO DAILY 10/21/22 03/01/24 History mcg (2,000 unit) capsule lisinopril 10 mg tablet 10 mg PO DAILY 03/24/23 03/01/24 History acetaminophen 650 mg 650 mg PO Q8H PRN pain 03/15/24 05/03/24 04:00 History tablet,extended release (Tylenol Arthritis Pain) alprazolam 0.25 mg tablet (Xanax) 0.25 mg PO BID PRN anxiety 03/15/24 Unknown History tramadol 50 mg tablet 50 mg PO BID PRN pain 03/15/24 Unknown History calcium 333 mg-vit D3 133 1 tab PO DAILY 05/01/24 Unknown History unit-magnesium 133 mg-zinc 5 mg tablet (Terrell Mag Zinc Plus D3) Allergy/AdvReac Type Severity Reaction Status Date / Time doxycycline Allergy Unknown GI Upset Verified 05/03/24 07:08 erythromycin base Allergy Unknown GI Upset Verified 05/03/24 07:08 hydroxychloroquine (From Allergy Unknown Nausea/Vom/ Verified 05/03/24 07:08 Plaquenil) Diarrhea timolol Allergy Unknown Parasthesia Verified 05/03/24 07:08 of face amoxicillin Allergy Nausea/Vom/ Verified 05/03/24 07:08 Diarrhea metformin Allergy Nausea/Vom/ Verified 05/03/24 07:08 Diarrhea Family History (Updated 03/15/24 @ 09:32 by Dona Oropeza) Mother Glaucoma Lymphoma Father Pancreatic cancer Brother Colon cancer In his 50's Sister Heart disease Surgical History Status post surgical removal and fulguration of bladder neoplasm Hx of colonoscopy History of tubal ligation (~1988) History of cataract extraction with lens replacement History of eye surgery Hx of knee surgery (~1969) Social History (Updated 03/15/24 @ 09:33 by Dona Oropeza) household members: none current occupational status: retired Smoking Status: Never smoker alcohol intake: never substance use type: does not use Past Medical/Surgical History Planned Operation Planned Operative Procedure(s): CSCOPE Previous Hospitalizations/Surgeries HX Hospitalizations: No Any Problems With Anesthesia: No You/Your Family Experience Fever (Hyperthermia) With Anes: No Cholinesterase deficiency: No Cardiovascular Hx Heart Attack: No Hx Hypertension: Yes (CONTROLLED WITH MED) Respiratory Hx Sleep Apnea: No Hx Respiratory Tract Infection/Cold (presently): No Do You Snore Loudly (louder than talking or can be heard): No Do You Often Feel Tired/ Fatigued/ Sleepy Dring Daytime?: No Has Anyone Observed You Stop Breathing During Sleep?: No Result (for STOP score): Negative Smoking Status: Never smoker Gastrointestinal Special diet followed at home: No Neurological Does patient have nerve stimulator: No Reproduction : No Genitourinary Hx Renal Disease: No Endocrine Hx Diabetes: No Miscellaneous Recent Exposure to Contagious Disease: No Allergies doxycycline Allergy (Unknown, Verified 05/03/24 07:08) GI Upset erythromycin base Allergy (Unknown, Verified 05/03/24 07:08) GI Upset hydroxychloroquine (From Plaquenil) Allergy (Unknown, Verified 05/03/24 07:08) Nausea/Vom/Diarrhea timolol Allergy (Unknown, Verified 05/03/24 07:08) Parasthesia of face amoxicillin Allergy (Verified 05/03/24 07:08) Nausea/Vom/Diarrhea metformin Allergy (Verified 05/03/24 07:08) Nausea/Vom/Diarrhea Discharge Is Pt Admitted From a [facility], or a Correction: No After D/C, Where Do you Plan to Go: Return Home Vital Signs Vital Signs Vital Signs: 05/03/24 07:10 05/03/24 07:10 Temperature 98.2 F Temperature Source Temporal Pulse Rate 87 Respiratory Rate 18 Respiratory Pattern Normal Blood Pressure 130/76 H Blood Pressure Mean 94 Blood Pressure Source Monitor Blood Pressure Position Sitting Blood Pressure Location Left Arm Pulse Ox 96 Oxygen Delivery Method Room Air Weight Weight: 187 lb 6.287 oz Body Mass Index (BMI) 33.2 Physical Exam Const alert, oriented x3 and no apparent distress HEENT normocephalic and head/scalp atraumatic Resp normal respiratory effort Cardio regular rate GI soft to palpation and non-tender; Negative for non-distended Palpation: Negative for guarding Extremity no clubbing, cyanosis or edema Skin no rashes or lesions noted Neuro CN's II-XII intact bilaterally Psych mental status grossly normal Assessment & Plan Assessment/Plan (1) Family history of malignant neoplasm of colon in first degree relative diagnosed when younger than 60 years of age: Surgery Risks - Colonoscopy I discussed with the patient the risks of the procedure: Yes Risks Include but are not Limited To: Risks include but are not limited to: Bleeding, perforation requiring further surgery, inability to complete colonoscopy requiring barium enema.
--- NOTE | 2024-05-03 07:39 | PCM.PRE.AN2 ---
ASA Classification* ASA Classification ASA Classification: 2 Assessment & Plan Anesthesia* Anesthesia Assessment Anesthesia Assessment: Discussed sedation and/or anesthesia options, risks, benefits, and alternatives with patient/parents/legal guardian/POA. Questions invited. The patient/parents/legal guardian/POA seems to understand and agrees to proceed with anesthesia plan. Reviewed the physical assessment, medical history, allergy history and patient home medications list prior to surgery/procedure/anesthetic and documented any changes. Performed airway and anesthesia risk assessments. Anesthesia Type Anesthesia Type: MAC Anesthesia Focused Assessment* Temperature: 98.2 F Pulse Rate: 87 Blood Pressure: 130/76 Respiratory Rate: 18 Pulse Ox: 96 Airway Assessment Mouth opens: >3 cm Mallampati Score: II Focused Labs Anesthesia Preop lab: CBC WBC 6.5 K/mm3 (4.4-11.0) 01/16/24 20:55 RBC 4.62 M/mm3 (4.2-5.4) 01/16/24 20:55 Hgb 15.8 g/dL (12.0-15.0) H 01/16/24 20:55 Hct 45.9 % (37-47) 01/16/24 20:55 Plt Count 153 K/mm3 (150-450) 01/16/24 20:55 CHEMISTRY Potassium 4.7 mmol/L (3.5-5.1) 01/16/24 20:55 Sodium 137 mmol/L (136-145) 01/16/24 20:55 BUN 19 mg/dL (7-18) H 01/16/24 20:55 Creatinine 1.08 mg/dL (0.55-1.02) H 01/16/24 20:55 Glucose 167 mg/dL (74-106) H 01/16/24 20:55 POC Glucose 125 mg/dL (74-106) H 03/02/24 06:11 TSH 2.63 uIU/mL (0.358-3.74) 10/08/22 11:37 COAG Pre-Assessment Diagnosis/Proposed Procedure Planned Operative Procedure(s): CSCOPE Anesthesia History Anesthesia History - electrical continuity tester: Anesthesia History - electrical continuity tester Hx Hospitalization No 05/03/24 07:21 Any Problems With Anesthesia No 05/03/24 07:21 Cholinesterase deficiency No 05/03/24 07:21 You/Your Family Experience No 05/03/24 07:21 fever (hyperthermia) with Relationship Recent Exposure to Contagious No 05/03/24 07:21 Disease Does patient have nerve No 05/03/24 07:21 stimulator Patient instructed to have device shut off --Does patient have Pacemaker or ICD? When Was Last Pacemaker Check QUESTION #4 FULL TEXT: You/Your Family Experience fever (hyperthermia) with Anesthesia Last Oral Intake Last Oral intake: Last Oral Intake NPO since 04:00 05/03/24 07:10 Meds taken in AM with sips of Yes 05/03/24 07:10 water? Meds patient instructed to tylenol 05/03/24 07:10 take am of surgery PONV PONV - electrical continuity tester: PONV - electrical continuity tester Female Yes 05/01/24 14:12 HX of Motion Sickness No 05/01/24 14:12 HX of N/V After Surgery No 05/01/24 14:12 Non-Smoker Yes 05/01/24 14:12 Duration of Surgery greater No 05/01/24 14:12 than 60 minutes Number of Risk Factors 2 05/01/24 14:12 PONV Score Moderate Risk 05/01/24 14:12 Height & Weight Height & Weight: Anesthesia: Height & Weight Height 5 ft 3 in 05/03/24 07:10 Weight: 85 kg 05/03/24 07:10 Body Mass Index (BMI) 33.2 05/03/24 07:10 Respiratory Assessment Respiratory Assessment - electrical continuity tester: Respiratory Tract Infection Hx - electrical continuity tester Hx Respiratory Tract Infection No 05/03/24 07:21 STOP Sleep Apnea STOP Sleep Apnea - electrical continuity tester: STOP Sleep Apnea - electrical continuity tester Hx Hypertension Yes: CONTROLLED WITH MED 05/03/24 07:21 Hx Sleep Apnea No 05/03/24 07:21 CPAP BIPAP Do you snore loudly (louder No 05/03/24 07:21 than talking or can be heard Do you often feel tired/ No 05/03/24 07:21 fatigued/ sleepy during daytime? Has anyone observed you stop No 05/03/24 07:21 breathing during sleep? STOP Results Negative 05/03/24 07:21 QUESTION #5 FULL TEXT : Do you snore loudly (louder than talking or can be heard through closed doors)? Tobacco Use History Tobacco Use History - electrical continuity tester: Tobacco Use History - electrical continuity tester Tobacco Use Smoking Status Never smoker 05/03/24 07:21 Hx Tobacco Use No 05/01/24 14:12 Years Smoking Packs Smoked per Day Smoking Cessation Date was within the last 15 years Hx Smoking Cessation Date Hx Smoking Cessation Counseling Hematologic Medial History Hematologic Hx - electrical continuity tester: Hematologic Medical Hx - study manager Hx of Blood Transfusion No 05/01/24 14:12 Hx of Transfusion in last 3 No 05/01/24 14:12 Months Date of Last Transfusion (if within last 3 months) Ever experience any problems No 05/01/24 14:12 with transfusion(s)? Specify any problems Hx of Preganancy in last 3 N/A 05/01/24 14:12 Months Nurse Filling Out Transfusion NBUCHER 05/01/24 14:12 & Questions: Date: 05/01/24 05/01/24 14:12 Time: 14:13 05/01/24 14:12 Patient unable to answer at this time (ie. confused, unrespo /Reproduction History /Reproductive History - electrical continuity tester: /Reproductive Hx- electrical continuity tester Hx Now No 05/03/24 07:21 Gestational Age (in weeks): EDC: Hx Hx Para Hx Section SAB No 05/01/24 14:12 PFSH Medical History Family history of malignant neoplasm of colon in first degree relative diagnosed when younger than 60 years of age Bladder tumor Wears glasses Wears contact lenses Cancer Bladder disease Fatty liver Dietary restriction Diabetes Non-smoker Hypertension History of edema History of echocardiogram History of stress test Cardiology follow-up encounter Bilateral inguinal hernia Essential hypertension Melanoma Meibomian gland dysfunction (MGD) Hemochromatosis Hx of gastroesophageal reflux (GERD) GERD (gastroesophageal reflux disease) History of diabetes mellitus History of atrial fibrillation Sjogren's disease Glaucoma Home Medications ?Medication ?Instructions ?Recorded ?Last Taken ?Type aspirin 81 mg tablet 81 mg PO DAILY 10/09/22 05/02/24 07:00 History cyanocobalamin (vitamin B-12) 1,000 mcg PO DAILY 10/09/22 03/01/24 History 1,000 mcg tablet (Vitamin B-12) folic acid 1 mg tablet 1 mg PO DAILY 10/09/22 03/01/24 History meloxicam 15 mg tablet 15 mg PO DAILY PRN pain 10/12/22 Unknown History methotrexate sodium 2.5 mg tablet 12.5 mg PO TU 10/12/22 02/27/24 History minocycline 50 mg capsule 50 mg PO DAILY 10/12/22 03/01/24 History pilocarpine HCl 5 mg tablet 5 mg PO TID PRN SJOGRENS 10/12/22 03/01/24 History cholecalciferol (vitamin D3) 50 50 mcg PO DAILY 10/21/22 03/01/24 History mcg (2,000 unit) capsule lisinopril 10 mg tablet 10 mg PO DAILY 03/24/23 03/01/24 History acetaminophen 650 mg 650 mg PO Q8H PRN pain 03/15/24 05/03/24 04:00 History tablet,extended release (Tylenol Arthritis Pain) alprazolam 0.25 mg tablet (Xanax) 0.25 mg PO BID PRN anxiety 03/15/24 Unknown History tramadol 50 mg tablet 50 mg PO BID PRN pain 03/15/24 Unknown History calcium 333 mg-vit D3 133 1 tab PO DAILY 05/01/24 Unknown History unit-magnesium 133 mg-zinc 5 mg tablet (Terrell Mag Zinc Plus D3) Allergy/AdvReac Type Severity Reaction Status Date / Time doxycycline Allergy Unknown GI Upset Verified 05/03/24 07:08 erythromycin base Allergy Unknown GI Upset Verified 05/03/24 07:08 hydroxychloroquine (From Allergy Unknown Nausea/Vom/ Verified 05/03/24 07:08 Plaquenil) Diarrhea timolol Allergy Unknown Parasthesia Verified 05/03/24 07:08 of face amoxicillin Allergy Nausea/Vom/ Verified 05/03/24 07:08 Diarrhea metformin Allergy Nausea/Vom/ Verified 05/03/24 07:08 Diarrhea Family History Mother Glaucoma Lymphoma Father Pancreatic cancer Brother Colon cancer In his 50's Sister Heart disease Surgical History Status post surgical removal and fulguration of bladder neoplasm Hx of colonoscopy History of tubal ligation (~1988) History of cataract extraction with lens replacement History of eye surgery Hx of knee surgery (~1969) Social History household members: none current occupational status: retired Smoking Status: Never smoker alcohol intake: never substance use type: does not use Review of Systems (Anesthesia) ROS Narrative System reviewed and no additional complaints, except as documented.
--- NOTE | 2024-05-03 08:00 | COLBX_PTH ---
PATIENT: SON BUSCH LOC: EN U#:[id number] AGE/SX: 64/F ROOM: RE05/03/[address]: Dr. Aliza Dietz MD : 1960 BED: DIS: 05/03/2024 SPEC #: [id number] RECD: 05/03/24 10:41 STATUS: EUGENIA REJeanmarie #: [id number] ROBERT: 05/03/24 08:[address]: Aliza Dietz DEPT: SURGICAL PATHOLOGY RECD BY: Wanda Giraldo ENTERED: 05/03/24 11:19 SP TYPE: COLON BX OTHR DR: Bo Gilmore MD Tissues: Cecum, NOS Procedures: Surgery Specimen Level IV HEADER OPERATION: Colonoscopy, biopsy PRE-OP DIAGNOSIS: Family history of malignant neoplasm of colon in first degree relative diagnosed when younger than 60 years of age TISSUE SUBMITTED: Cecum polyp biopsy x2 MICROSCOPIC DIAGNOSIS Cecal polyp x2, biopsy: Fragments of tubular adenoma. SJ.mr 05/04/2024 MICROSCOPIC DESCRIPTION Slides are reviewed. GROSS DESCRIPTION Received in fixative is one container labeled with the patient's name and designated Cecum polyp x2. The specimen consists of multiple irregular fragments of light aranda soft tissue that in aggregate measure 1.1 x 0.2 x 0.1 cm. The specimen is totally submitted in one cassette. mr 05/03/2024 TC:1 CPT:11027
--- NOTE | 2024-05-03 08:37 | OP.COLON_ITS ---
Patient Name: Velia Marie Procedure Date: 05/03/2024 7:54 AM Date of : 1960 Age: 64 Procedure: Colonoscopy Indications: Screening in patient at increased risk: Family history of 1st-degree relative with colorectal cancer before age 60 years Providers: Aliza Dietz MD Referring MD: Bo Gilmore Md Medicines: Monitored Anesthesia Care Patient Profile: This is a 64 year old female. Last Colonoscopy: 10 years ago. Complications: No immediate complications. Procedure: Pre-Anesthesia Assessment: - Prior to the procedure, a History and Physical was performed, and patient medications and allergies were reviewed. The patient's tolerance of previous anesthesia was also reviewed. The risks and benefits of the procedure and the sedation options and risks were discussed with the patient. All questions were answered, and informed consent was obtained. Prior Anticoagulants: The patient has taken no anticoagulant or antiplatelet agents except for aspirin. ASA Grade Assessment: Per anesthesia. After reviewing the risks and benefits, the patient was deemed in satisfactory condition to undergo the procedure. After I obtained informed consent, the scope was passed under direct vision. Throughout the procedure, the patient's blood pressure, pulse, and oxygen saturations were monitored continuously. The Colonoscope was introduced through the anus and advanced to the cecum, identified by the appendiceal orifice, ileocecal valve and palpation. The colonoscopy was performed without difficulty. The patient tolerated the procedure well. The quality of the bowel preparation was good. Scope In: 8:06:20 AM Scope Withdrawal Time 0 hours 12 minutes 3 seconds Scope Out: 8:24:48 AM Total Procedure Duration Time 0 hours 18 minutes 28 seconds Findings: The perianal and digital rectal examinations were normal. Two sessile polyps were found in the cecum. The polyps were less than 5 mm in size. These polyps were removed with a cold biopsy forceps. Resection and retrieval were complete. The exam was otherwise without abnormality on direct and retroflexion views. Impression: - Two less than 5 mm polyps in the cecum, removed with a cold biopsy forceps. Resected and retrieved. - The examination was otherwise normal on direct and retroflexion views. Recommendation: - Discharge patient to home. - Resume previous diet. - Continue present medications. - Await pathology results. - Repeat colonoscopy in 3 years for surveillance based on pathology results. Procedure Code(s): --- Professional --- 13865, PT, Colonoscopy, flexible; with biopsy, single or multiple Diagnosis Code(s): --- Professional --- Z80.0, Family history of malignant neoplasm of digestive organs D12.0, Benign neoplasm of cecum CPT copyright 2021 [employer]. All rights reserved. The codes documented in this report are preliminary and upon airplane woodworker review may be revised to meet current compliance requirements. MD Aliza Foster MD 05/03/2024 8:36:42 AM This report has been signed electronically. Number of Addenda: 0 Note Initiated On: 05/03/2024 7:54 AM
--- NOTE | 2024-05-03 08:37 | OP.CCLET_ITS ---
05/03/2024 Bo Gilmore Md Re : Colonoscopy procedure for Velia Marie Dear Deirdre This procedure was performed on Friday, May 03, 2024. My impressions and recommendations are as follows: Impressions : - Two less than 5 mm polyps in the cecum, removed with a cold biopsy forceps. Resected and retrieved. - The examination was otherwise normal on direct and retroflexion views. Recommendations : - Discharge patient to home. - Resume previous diet. - Continue present medications. - Await pathology results. - Repeat colonoscopy in 3 years for surveillance based on pathology results. My findings are described in the full procedure note, which is enclosed. If I can be of further assistance, please feel free to contact me at Doctor phone number(s): , Work: . Sincerely, MD Aliza Foster MD 05/03/2024 8:36:42 AM This report has been signed electronically.
--- NOTE | 2024-05-03 08:45 | PCM.POST.ANE ---
Anesthesia: Postop Eval I Current Vital Signs Temperature: 98.5 F Pulse Rate: 75 Blood Pressure: 112/79 Respiratory Rate: 18 Pulse Ox: 96 Oxygen Delivery Method: Room Air Assessment Airway patent: Yes Spontaneous unlabored respirations: Yes Mental status: Awake nausea: No Vomiting: No Anesthesia Complication: No Fluid Hydration Crystalloid volume administer (ml): 10 Total IV fluid infused: 10 Progress Note Anesthesia document: Postop Eval 1 completed: Yes
--- NOTE | 2024-05-03 09:15 | PCM.POST.ANE ---
Anesthesia: Postop Eval I Current Vital Signs Temperature: 97.2 F Pulse Rate: 93 Blood Pressure: 106/96 Respiratory Rate: 16 Pulse Ox: 96 Oxygen Delivery Method: Room Air Assessment Airway patent: Yes Spontaneous unlabored respirations: Yes Mental status: Awake and Calm nausea: No Vomiting: No Anesthesia Complication: No Fluid Hydration Crystalloid volume administer (ml): 30 Total IV fluid infused: 30 Progress Note Anesthesia document: Postop Eval 1 completed: Yes
--- NOTE | 2024-05-03 09:21 | PCM.POSTANE2 ---
Anesthesia Postop Eval I Sum Postop Eval Completion status Anesthesia document: Postop Eval 1 completed: Yes Anesthesia Postop Eval I Summary Anesthesia Postop Eval I Summary: Anesthesia Postop Eval I: Assessment Summary Airway patent Yes 05/03/24 09:21 Spontaneous unlabored Yes 05/03/24 09:21 respirations Mental status Awake 05/03/24 09:21 nausea No 05/03/24 09:21 Vomiting No 05/03/24 09:21 Anesthesia Postop Eval I: Fluid Summary Crystalloid volume administer 10 05/03/24 09:21 (ml) Colloids volume administered ( ml) Blood Product volume administered (ml) Total IV fluid infused 10 05/03/24 09:21 Anesthesia Postop Eval I: Summary Notes Anesthesia Complication No 05/03/24 09:21 Anesthesia Complication Comment: Post-operative progress note Anesthesia: Postop Eval II Evaluation Mental status: Awake Pain Level: 0 nausea: No Vomiting: No
== END 2024-05-03 09:10 | disposition home or self-care (01) ==
LOC: EN 06:45 → AC 06:47
PROVIDERS: PCP Family Medicine; Referring Provider Family Medicine; Visit Provider Surgery
PROC: 0DJD8ZZ Inspection of Lower Intestinal Tract, Via Natural or Artificial Opening Endoscopic (ICD-10-PCS; CPT 45378; principal; 2024-05-03 07:55)
DX: Z12.11 Encounter for screening for malignant neoplasm of colon (principal); E11.9 Type 2 diabetes mellitus without complications; D12.0 Benign neoplasm of cecum; I10 Essential (primary) hypertension; Z80.0 Family history of malignant neoplasm of digestive organs; Z79.899 Other long term (current) drug therapy; Z79.82 Long term (current) use of aspirin
CPT/HCPCS: 45380; 88305; A4216

== ENCOUNTER → 2024-07-03 | Outpatient (CLI) | payer MEDICAID, SELFPAY ==
[2024-07-03 13:10] LABS: SERUM TEARS COLLECTION SPECIMEN PROCESSED
== END | disposition home or self-care (01) ==
PROVIDERS: PCP Family Medicine; Referring Provider Ophthalmology; Visit Provider Ophthalmology
DX: H04.123 Dry eye syndrome of bilateral lacrimal glands (principal)

== ENCOUNTER → 2024-07-10 | Outpatient (CLI) | payer MEDICAID, SELFPAY ==
--- NOTE | 2024-07-10 12:49 | RAD_ITS ---
EXAM: XR Chest, 2 Views CLINICAL INDICATION: SOB WITH EXERTIONAL TECHNIQUE: Frontal and lateral views of the chest. COMPARISON: No relevant prior studies available. FINDINGS: LUNGS AND PLEURAL SPACES: Unremarkable. No consolidation. No pneumothorax. HEART: Unremarkable. No cardiomegaly. MEDIASTINUM: Unremarkable. Normal mediastinal contour. BONES/JOINTS: Unremarkable. No acute fracture. RAD/Chest PA and Lateral IMPRESSION: No acute cardiopulmonary process. Reading Location: [facility]
== END | disposition home or self-care (01) ==
LOC: MTRAD 12:49
PROVIDERS: PCP Family Medicine; Referring Provider Family Medicine; Visit Provider Family Medicine
DX: R06.02 Shortness of breath (principal)
CPT/HCPCS: 71046

== ENCOUNTER → 2024-07-18 | Outpatient (CLI) | payer MEDICAID, SELFPAY ==
--- NOTE | 2024-07-18 12:45 | EKG12_ITS ---
Test Reason : CHEST PAIN W EXERTIO Blood Pressure : */* mmHG Vent. Rate : 98 BPM Atrial Rate : 98 BPM P-R Int : 132 ms QRS Dur : 70 ms QT Int : 352 ms P-R-T Axes : 32 73 15 degrees QTcB Int : 449 ms Normal sinus rhythm Normal ECG Confirmed by ANJELICA TINSLEY, ELAINE ([id number]), order editor SHAAN GRAHAM ([id number]) on 07/19/2024 6:37:33 AM Referred By: Bo Gilmore Confirmed By: ELAINE DEJESUS MD
== END | disposition home or self-care (01) ==
LOC: PSN 12:45
PROVIDERS: PCP Family Medicine; Referring Provider Family Medicine; Visit Provider Family Medicine
DX: R07.9 Chest pain, unspecified (principal)
CPT/HCPCS: 93005

== ENCOUNTER → 2024-08-02 | Outpatient (CLI) | payer MEDICAID, SELFPAY ==
--- NOTE | 2024-08-02 10:41 | ECHOD_ITS ---
Reason For Study Reason For Study: CHEST PAIN Procedure This was a 2D Doppler, Color Flow transthoracic echocardiogram. Exam performed in department. Left Ventricle Normal LV size. Left ventricular systolic function is normal. The left ventricular ejection fraction is 65 %. No regional wall motion abnormalities noted. Right Ventricle Normal RV size. Normal systolic function. Atria Normal left atrium. Normal right atrium. Mitral Valve Normal mitral valve. Tricuspid Valve Normal tricuspid valve. Aortic Valve Normal aortic valve. Trisinus/trileaflet aortic valve. Pulmonic Valve Normal pulmonic valve. Great Vessels Normal aortic root. The pulmonary artery is normal size. Inferior vena cava collapse with respiration. Pericardium/Pleural No pericardial effusion. MMode/2D Measurements & Calculations LVIDd: 4.3 cm IVSd: 0.94 cm Ao root diam: 3.3 cm LVIDs: 2.7 cm LVPWd: 1.0 cm RVDd: 2.8 cm FS: 37.0 % LAV(MOD-bp): 33.0 ml LVAd ap4: 22.4 cm2 SV(MOD-sp4): 36.8 ml LAV(MOD-bp) Indexed: 17.5 ml/m2 LVLd ap4: 7.5 cm SI(MOD-sp4): 19.5 ml/m2 LAV(MOD-sp2): 29.4 ml EDV(MOD-sp4): 56.2 ml LAV(MOD-sp4): 34.3 ml EDV(sp4-el): 57.3 ml LVAs ap4: 11.3 cm2 LVLs ap4: 5.7 cm ESV(MOD-sp4): 19.3 ml ESV(sp4-el): 19.1 ml EF(MOD-sp4): 65.6 % EF(sp4-el): 66.7 % SV(sp4-el): 38.2 ml LA A4 area: 14.8 cm2 LA dimension(2D): 3.4 cm RA A4 area: 12.4 cm2 TAPSE: 2.3 cm Time Measurements MV dec time: 0.29 sec Doppler Measurements & Calculations MV E max slick: 65.3 cm/sec Lat Peak E' Slick: 12.3 cm/sec Med Peak E' Slick: 7.5 cm/sec MV A max slick: 86.9 cm/sec E/E' lat: 5.3 E/E' med: 8.7 MV E/A: 0.75 Ao V2 max: 144.7 cm/sec LV V1 max: 98.9 cm/sec PA V2 max: 98.5 cm/sec Ao max P.4 mmHg LV V1 max P.9 mmHg TR max slick: 244.1 cm/sec TR max P.8 mmHg ECHO/Echo Complete Interpretation Summary Normal LV size. Left ventricular systolic function is normal. The left ventricular ejection fraction is 65 %. Structurally normal valves. Ordering Physician: Bo Gilmore Referring Physician: Bo Gilmore Performed By: Mariella Cabello RDCS
--- NOTE | 2024-08-02 17:09 | STRESSREP ---
Stress Test Report Exercise stress test. 64-year-old lady with a history of chest pain Stress protocol: Resting EKG demonstrates normal sinus rhythm with a rate of 84 bpm resting blood pressure is 122/80 mmHg. The patient exercised according to the regular Jeet protocol for a total duration of 4 minutes attaining a maximum heart rate of 160 bpm which was 102 beats of maximum predicted heart rate; the maximum workload was 7 metabolic equivalents. At rest there were no ST or T wave changes noted to suggest ischemia and at peak exercise upsloping ST changes only were noted which did not meet the criteria for ischemia. No clinical angina was noted the test was terminated due to the target heart rate being achieved/fatigue, as well as moderate shortness of breath. The peak blood pressure was 180/78 mmHg. Rate-pressure product was 22,500. Conclusion: Exercise stress test with no EKG criteria for ischemia at a moderate workload
== END | disposition home or self-care (01) ==
LOC: CVS 10:37
PROVIDERS: PCP Family Medicine; Referring Provider Family Medicine; Visit Provider Family Medicine
DX: R07.9 Chest pain, unspecified (principal)
CPT/HCPCS: 93017; 93306

== ENCOUNTER → 2024-08-07 | Outpatient (CLI) | payer MEDICAID, SELFPAY ==
[2024-08-07 12:44] LABS: Absolute Lymphocyte Count 1.76 X10^3/uL (0.83-4.51); Absolute Neutrophil Count 2.8 X10^3/uL (2.0-7.7); Basophil# 0.02 X10^3/uL; Basophil% 0.4 % (0-1); Eosinophil# 0.26 X10^3/uL; Hematocrit 45.4 % (37-47); Hemoglobin 15.5 g/dL (12.0-15.0); Lymphocyte # 1.76 X10^3/ul (0.83-4.51); Lymphocyte % 33.7 % (19-41); Mean Corp Hgb Conc 34.1 g/dL (32-36); Mean Corpuscular Volume 99.6 fL (81-99); Mean Platelet Vol. 13.4 fl (6.2-12.0); Monocyte% 7.7 % (0-10); NRBC Flagged by Analyzer 0 % (0-5); Neutrophil # 2.77 X10^3/uL (2.7-7.7); Platelet Count 142 K/mm3 (150-450); RBC Distribution Width CV 12.7 % (11.6-14.6); RBC Distribution Width SD 46.7 fl (35.1-43.9); Red Blood Count 4.56 M/mm3 (4.2-5.4); White Blood Count 5.2 K/mm3 (4.4-11.0)
[2024-08-07 13:53] LABS: Anion Gap 10 (5-15); BUN 14 mg/dL (4-19); BUN/Creat Ratio 18.5 RATIO (10-20); Calcium,Total 9.3 mg/dL (7.6-11.0); Chloride 103 mmol/L (98-108); Creatinine, Serum 0.77 mg/dL (0.70-1.20); EST Glomerular Filtration Rate 86 (>60); Glucose 158 mg/dL (70-99); Potassium 4.7 mmol/L (3.3-5.1); Pro- Brain NATRIURETIC PEPTIDE < 36 pg/mL (<=900); Sodium Level 137 mmol/L (133-145)
== END | disposition home or self-care (01) ==
LOC: LAB 12:11
PROVIDERS: PCP Family Medicine; Referring Provider Nurse Practitioner Gerontology; Visit Provider Nurse Practitioner Gerontology
DX: R06.09 Other forms of dyspnea (principal); R53.83 Other fatigue
CPT/HCPCS: 36415; 80048; 83880; 84443; 85025

== ENCOUNTER → 2024-09-07 | Outpatient (CLI) | payer SELFPAY ==
[2024-09-07 13:26] LABS: SERUM TEARS COLLECTION SPECIMEN PROCESSED
== END | disposition home or self-care (01) ==
LOC: LAB 11:01
PROVIDERS: PCP Family Medicine; Referring Provider Ophthalmology; Visit Provider Ophthalmology
DX: H04.123 Dry eye syndrome of bilateral lacrimal glands (principal); M35.00 Sjogren syndrome, unspecified

== ENCOUNTER 2024-10-24 16:22 | Outpatient (CLI) | payer MEDICAID, SELFPAY ==
[2024-10-24 16:40] LABS: Hematocrit 44.1 % (37-47); Hemoglobin 14.9 g/dL (12.0-15.0); Immature Granulocytes Count 0.010 X10^3/uL (0.0-0.0); Immature Reticulocyte Fraction 9.60 % (3.00-15.90); Mean Corp Hgb Conc 33.8 g/dL (32-36); Mean Corpuscular Volume 98.0 fL (81-99); Mean Platelet Vol. 12.5 fl (6.2-12.0); NRBC Flagged by Analyzer 0 % (0-5); Platelet Count 133 K/mm3 (150-450); RBC Distribution Width CV 12.9 % (11.6-14.6); RBC Distribution Width SD 45.7 fl (35.1-43.9); Red Blood Count 4.50 M/mm3 (4.2-5.4); Reticulocyte Count 2.58 % (0.5-1.5); White Blood Count 5.3 K/mm3 (4.4-11.0)
[2024-10-24 17:36] LABS: AST(SGOT) 61 U/L (<=31); Alanine Aminotransfer ALT/SGPT 43 U/L (<=34); Albumin, Serum 3.9 g/dL (3.4-4.8); Alkaline Phosphatase 115 U/L (35-104); Anion Gap 11 (5-15); BUN 16 mg/dL (4-19); BUN/Creat Ratio 24.0 RATIO (10-20); Calcium,Total 9.1 mg/dL (7.6-11.0); Carbon Dioxide 22.7 mmol/L (21.0-32.0); Chloride 104 mmol/L (98-108); Ferritin 49 ng/mL (22-378); Globulin 3.6 g/dL (2.2-4.2); Glucose 149 mg/dL (70-99); Potassium 4.4 mmol/L (3.3-5.1)
[2024-10-25 00:36] LABS: Xtra Tube EP Lab EXTRA TUBE
[2024-10-25 18:32] LABS: Iron Binding Capacity,Total 259 ug/dL (250-450)
[2024-10-25 18:35] LABS: Iron 108 ug/dL (50-170); Iron Binding Capacity,Unsat 151 ug/dL (228-428); LDH 236 U/L (84-246)
== END 2024-10-24 23:59 | disposition home or self-care (01) ==
PROVIDERS: PCP Family Medicine; Referring Provider Internal Medicine Medical Oncology; Visit Provider Internal Medicine Medical Oncology
DX: M79.89 Other specified soft tissue disorders (principal); E83.119 Hemochromatosis, unspecified
CPT/HCPCS: 36415; 80053; 82728; 83540; 83550; 83615; 85025; 85045; 85652

== ENCOUNTER → 2024-10-25 | Outpatient (CLI) | payer MEDICAID, SELFPAY ==
--- NOTE | 2024-10-25 10:49 | VDLE_ITS ---
Reason For Study Reason For Study: Swelling RIGHT LEFT GSV is normal. GSV is normal. CFV is compressible, spontaneous, phasic, competent CFV is compressible, spontaneous, phasic, competent, and demonstrates normal augmentation. and demonstrates normal augmentation. FV is compressible, spontaneous, phasic, competent FV is compressible, spontaneous, phasic, competent and demonstrates normal augmentation. and demonstrates normal augmentation. POP V is compressible, spontaneous, phasic, competent POP V is compressible, spontaneous, phasic, competent and demonstrates normal augmentation. and demonstrates normal augmentation. T/P Trunk is compressible. T/P Trunk is compressible. PTV is compressible. PTV is compressible. RT PerV is compressible. LT PerV is compressible. Procedure This is a venous duplex using B-mode, color flow and spectral Doppler. Exam performed in department. A preliminary report was called and/or faxed to Calin Wilson MD. VL/Venous Duplex US - Fidencio Extrem Interpretation Summary Deep veins of the bilateral lower extremities are patent and compressible segme ntally. There is no evidence of bilateral lower extremity deep vein thrombosis. The bilateral great saphenous veins appea r patent and compressible segmentally. Ordering Physician: Calin Wilson Referring Physician: Calin Wilson Performed By: Trisha Conn RVT
== END | disposition home or self-care (01) ==
LOC: CVS 10:46
PROVIDERS: PCP Family Medicine; Referring Provider Internal Medicine Medical Oncology; Visit Provider Internal Medicine Medical Oncology
DX: I70.92 Chronic total occlusion of artery of the extremities (principal); M79.89 Other specified soft tissue disorders; I25.10 Atherosclerotic heart disease of native coronary artery without angina pectoris
CPT/HCPCS: 93970

== ENCOUNTER → 2024-10-26 | Outpatient (CLI) | payer MEDICAID, SELFPAY ==
--- NOTE | 2024-10-26 09:58 | RAD_ITS ---
PROCEDURE: ELBOW MIN 3 VIEWS 10/26/2024 REASON FOR EXAM: LEFT ELBOW PAIN TECHNIQUE: ELBOW MIN 3 VIEWS COMPARISON: None. FINDINGS: No evidence of acute fracture or dislocation. No elbow joint effusion. RAD/Elbow min 3 Views IMPRESSION: No acute osseous abnormalities. Reading Location: [place] [id number]
[2024-10-26 11:25] LABS: AST(SGOT) 63 U/L (<=31); Alanine Aminotransfer ALT/SGPT 48 U/L (<=34); Albumin, Serum 3.8 g/dL (3.4-4.8); Alkaline Phosphatase 110 U/L (35-104); Bilirubin, Direct 0.31 mg/dL (0.00-0.30); Cholesterol 158 mg/dL (<=200); Globulin 3.6 g/dL (2.2-4.2); Low Density Lipoprotein Calc. 93 mg/dL; Triglycerides 136 mg/dL; Very Low Density Lipoprotein 27 mg/dL (5-40); cholesterol:hdl ratio screen 4.15
== END | disposition home or self-care (01) ==
LOC: MTLAB 08:21 → MTRAD 09:58
PROVIDERS: PCP Family Medicine; Referring Provider Nurse Practitioner Gerontology; Visit Provider Nurse Practitioner Gerontology
DX: M25.529 Pain in unspecified elbow (principal); I25.10 Atherosclerotic heart disease of native coronary artery without angina pectoris
CPT/HCPCS: 36415; 73080; 80061; 80076

== ENCOUNTER → 2024-10-27 | Outpatient (CLI) | payer MEDICAID, SELFPAY | END | disposition home or self-care (01) | LOC: MTLAB 11:47 | PROVIDERS: PCP Family Medicine; Referring Provider Family Medicine; Visit Provider Family Medicine | DX: E11.9 Type 2 diabetes mellitus without complications (principal) | CPT/HCPCS: 36415; 83036 ==

== ENCOUNTER → 2024-11-16 | Outpatient (CLI) | payer MEDICAID, SELFPAY ==
[2024-11-16 16:19] LABS: AST(SGOT) 63 U/L (<=31); Alanine Aminotransfer ALT/SGPT 50 U/L (<=34); Albumin, Serum 4.0 g/dL (3.4-4.8); Alkaline Phosphatase 106 U/L (35-104); Anion Gap 13 (5-15); BUN 15 mg/dL (4-19); BUN/Creat Ratio 22.5 RATIO (10-20); Calcium,Total 9.4 mg/dL (7.6-11.0); Carbon Dioxide 20.3 mmol/L (21.0-32.0); Chloride 106 mmol/L (98-108); Globulin 3.4 g/dL (2.2-4.2); Glucose 126 mg/dL (70-99); Potassium 4.3 mmol/L (3.3-5.1); Vitamin D,25 Hydroxy 36.1 ng/mL (30-100)
[2024-11-16 17:27] LABS: CRP < 3.00 mg/L (0.0-3.0)
[2024-11-16 18:05] LABS: Hematocrit 45.4 % (37-47); Hemoglobin 15.2 g/dL (12.0-15.0); Immature Granulocytes Count 0.010 X10^3/uL (0.0-0.0); Mean Corp Hgb Conc 33.5 g/dL (32-36); Mean Corpuscular Volume 99.1 fL (81-99); Mean Platelet Vol. 14.3 fl (6.2-12.0); NRBC Flagged by Analyzer 0 % (0-5); Platelet Count 142 K/mm3 (150-450); RBC Distribution Width CV 13.2 % (11.6-14.6); RBC Distribution Width SD 48.2 fl (35.1-43.9); Red Blood Count 4.58 M/mm3 (4.2-5.4); White Blood Count 4.7 K/mm3 (4.4-11.0)
[2024-11-20 14:08] LABS: Anti-Chromatin <0.2 AI (0.0-0.9); Anti-Jo <0.2 AI (0.0-0.9); Anti-dsDNA Ab 2 IU/mL (0-9); SJOGREN'S Anti-SS-A test 0.2 AI (0.0-0.9); SJOGREN'S Anti-SS-B test < 0.2 AI (0.0-0.9)
[2024-11-20 17:08] LABS: PROEL- A/G Ratio 1.0 (0.7-1.7); PROEL- Albumin 3.5 g/dL (2.9-4.4); PROEL- Alpha-1 Globulin 0.2 g/dL (0.0-0.4); PROEL- Alpha-2 Globulin 0.7 g/dL (0.4-1.0); PROEL- Beta Globulin 1.2 g/dL (0.7-1.3); PROEL- Gamma Globulin 1.4 g/dL (0.4-1.8); PROEL- Globulin, Total 3.5 g/dL (2.2-3.9); PROEL- TOTAL PROTEIN 7.0 g/dL (6.0-8.5); PROEL-M-Spike Not Observed g/dL (Not Observed)
== END | disposition home or self-care (01) ==
LOC: MFPLAB 11:47
PROVIDERS: PCP Family Medicine; Visit Provider Family Medicine
DX: M25.50 Pain in unspecified joint (principal)
CPT/HCPCS: 86431; 36415; 80053; 82306; 84165; 84443; 85025; 85652; 86140; 86200; 86225; 86235

== ENCOUNTER 2024-11-27 17:15 | Outpatient (CLI) | payer MEDICAID, SELFPAY | END 2024-11-27 18:00 | disposition home or self-care (01) | LOC: CT 02-15 16:25 | PROVIDERS: PCP Family Medicine; Referring Provider Internal Medicine Medical Oncology; Visit Provider Internal Medicine Medical Oncology | DX: K86.2 Cyst of pancreas (principal) | CPT/HCPCS: 74160; Q9967 ==

== ENCOUNTER → 2024-11-29 | Outpatient (CLI) | payer SELFPAY, MEDICAID ==
[2024-11-29 12:15] LABS: SERUM TEARS COLLECTION SPECIMEN PROCESSED
== END | disposition home or self-care (01) ==
LOC: LAB 10:07
PROVIDERS: PCP Family Medicine; Referring Provider Ophthalmology; Visit Provider Ophthalmology
DX: H04.123 Dry eye syndrome of bilateral lacrimal glands (principal)

== ENCOUNTER → 2025-02-27 | Outpatient (CLI) | payer SELFPAY ==
[2025-02-27 12:21] LABS: SERUM TEARS COLLECTION SPECIMEN PROCESSED
== END | disposition home or self-care (01) ==
PROVIDERS: PCP Family Medicine; Referring Provider Ophthalmology; Visit Provider Ophthalmology
DX: H04.123 Dry eye syndrome of bilateral lacrimal glands (principal)

== ENCOUNTER → 2025-03-09 | Outpatient (CLI) | payer MEDICARE, MEDICAID, SELFPAY | END | disposition home or self-care (01) | LOC: PSN 12:08 | PROVIDERS: PCP Family Medicine | DX: M35.00 Sjogren syndrome, unspecified (principal) | CPT/HCPCS: 94060; 94726; 94729 ==

== ENCOUNTER → 2025-04-02 | Outpatient (CLI) | payer MEDICARE, SELFPAY ==
[2025-04-02 12:31] LABS: Hematocrit 43.0 % (37-47); Hemoglobin 15.0 g/dL (12.0-15.0); Immature Granulocytes Count 0.010 X10^3/uL (0.0-0.0); Mean Corp Hgb Conc 34.9 g/dL (32-36); Mean Corpuscular Volume 97.5 fL (81-99); Mean Platelet Vol. 14.0 fl (6.2-12.0); NRBC Flagged by Analyzer 0 % (0-5); Platelet Count 110 K/mm3 (150-450); RBC Distribution Width CV 12.3 % (11.6-14.6); RBC Distribution Width SD 44.1 fl (35.1-43.9); Red Blood Count 4.41 M/mm3 (4.2-5.4); White Blood Count 4.2 K/mm3 (4.4-11.0)
[2025-04-02 12:39] LABS: AST(SGOT) 58 U/L (<=31); Alanine Aminotransfer ALT/SGPT 62 U/L (<=34); Albumin, Serum 3.9 g/dL (3.4-4.8); Alkaline Phosphatase 103 U/L (35-104); Anion Gap 10 (5-15); BUN 16 mg/dL (4-19); BUN/Creat Ratio 19.7 RATIO (10-20); Calcium,Total 9.1 mg/dL (7.6-11.0); Carbon Dioxide 24.2 mmol/L (21.0-32.0); Chloride 103 mmol/L (98-108); Ferritin 64 ng/mL (22-378); Globulin 3.0 g/dL (2.2-4.2); Glucose 313 mg/dL (70-99); Potassium 4.2 mmol/L (3.3-5.1)
[2025-04-02 13:13] LABS: Iron 250 ug/dL (50-170); Iron Binding Capacity,Unsat < 17 ug/dL (228-428)
== END | disposition home or self-care (01) ==
PROVIDERS: PCP Family Medicine; Referring Provider Internal Medicine Medical Oncology; Visit Provider Internal Medicine Medical Oncology
DX: E83.119 Hemochromatosis, unspecified (principal); K76.0 Fatty (change of) liver, not elsewhere classified
CPT/HCPCS: 36415; 80053; 82728; 83540; 83550; 85025